=== PATIENT | female | born 1945 | race Caucasian/White ===

== ENCOUNTER 2020-11-22 01:32 | Inpatient (IN) | payer MEDICARE ==
[2020-11-22 01:37] LABS: Glucose,Whole Blood 534 mg/dL (75-99)
[2020-11-22] MEDS ORDERED: SODIUM CHLORIDE 0.9% 1,000 ML IV STA ×2 (01:49)
[2020-11-22] MEDS ORDERED: SODIUM CHLORIDE 0.9% 1,000 ML IV ONE (01:50)
--- NOTE | 2020-11-22 01:54 | ED ---
Recheck HPI - General Chief Complaint: Altered Mental Status Stated Complaint: Altered mental status Time Seen by Provider: 11/22/20 01:46 Source: EMS, RN notes reviewed, old records reviewed Mode of arrival: EMS Limitations: altered mental status, physical limitation - History of Present Illness Initial Comments: This is a 75-year-old female DF for evaluation patient Dese for evaluation regards to treatment of DKA. Patient accepted as a transfer patient with she presented after unknown downtime unknown amount days for she was last seen. Patient significantly altered on arrival to prior emergency department. Patient again transferred us for treatment and management DKA, patient is no code patient MD Complaint: abnormal lab (DKA) -: unknown Returns Today for: Called Because of Abnormal Lab/Test Symptoms Since Prior Visit: no new symptoms Context: other Associated Symptoms: none Treatments Prior to Arrival: Given Antibiotics on - Related Data Allergies Allergy/AdvReac Type Severity Reaction Status Date / Time Iodinated Contrast Media AdvReac Unknown Verified 11/22/20 01:41 Review of Systems ROS Statement: Those systems with pertinent positive or pertinent negative responses have been documented in the HPI. ROS Other: All systems not noted in ROS Statement are negative. Past Medical History Past Medical History: Diabetes Mellitus, Hypertension History of Any Multi-Drug Resistant Organisms: Unobtainable Past Surgical History: Unable to Obtain Past Psychological History: Unable to Obtain Smoking Status: Unknown if ever smoked Past Alcohol Use History: Unable to Obtain Past Drug Use History: Unable to Obtain General Exam Limitations: altered mental status General appearance: alert, anxious, in distress Head exam: Present: atraumatic, normocephalic, normal inspection Eye exam: Present: normal appearance, PERRL, EOMI. Absent: scleral icterus, conjunctival injection, periorbital swelling ENT exam: Present: normal exam, mucous membranes dry Neck exam: Present: normal inspection. Absent: tenderness, meningismus, lymphadenopathy Respiratory exam: Present: normal lung sounds bilaterally. Absent: respiratory distress, wheezes, rales, rhonchi, stridor Cardiovascular Exam: Present: regular rate, normal rhythm, normal heart sounds. Absent: systolic murmur, diastolic murmur, rubs, gallop, clicks GI/Abdominal exam: Present: soft, normal bowel sounds. Absent: distended, tenderness, guarding, rebound, rigid Extremities exam: Present: normal inspection, full ROM, normal capillary refill. Absent: tenderness, pedal edema, joint swelling, calf tenderness Back exam: Present: normal inspection Neurological exam: Present: alert, oriented X3, CN II-XII intact Psychiatric exam: Present: normal affect, normal mood Skin exam: Present: warm, dry, intact, normal color. Absent: rash Course Vital Signs 11/22/20 01:36 Temperature 97.8 F Pulse Rate 86 Respiratory 24 Rate Blood Pressure 139/61 - Reevaluation(s) Reevaluation #1: 11/22/20 01:52 Medical records reviewed Reevaluation #2: 11/22/20 01:52 Transfer paperwork is also been reviewed Reevaluation #3: 11/22/20 01:52 Patient remains altered Medical Decision Making - Medical Decision Making 75 female of her mental status, accepted in transfer for continued treatment of DKA. Patient be admitted for monitoring of electrolytes. Patient is a no code patient - Lab Data Lab Results 11/22/20 Range/Units 01:36 POC Glucose (mg/dL) 534 H (75-99) mg/dL POC Glu Hog Cutter Steph Randhawa - EKG Data -: EKG Interpreted by Me (EKG is rate of 92, QRS 86 QTc 467) Critical Care Time Critical Care Time: Yes Total Critical Care Time: 31 Disposition Clinical Impression: Altered mental status, DKA (diabetic ketoacidoses), DNR no code (do not resuscitate) Disposition: ADMITTED IP TO THIS [facility] Condition: Serious Is patient prescribed a controlled substance at d/c from ED?: No Referrals: Nonstaff,Physician [Primary Care Provider] - 1-2 days
[2020-11-22 02:42] LABS: Glucose,Whole Blood 496 mg/dL (75-99)
[2020-11-22] MEDS: SODIUM CHLORIDE 0.9% 1,000 ML IV SCH ×3 (02:43→11:04)
[2020-11-22] MEDS: INSULIN REGULAR 100 UNIT in SODIUM CHLORIDE 0.9% 100 ML IV SCH ×3 (02:44→20:08)
[2020-11-22 02:57] LABS: HCT 43.5 % (34.0-46.0); HGB 13.5 gm/dL (11.4-16.0); MCH 30.1 pg (25.0-35.0); MCHC 30.9 g/dL (31.0-37.0); MCV 97.3 fL (80.0-100.0); Mean Platelet Volume 7.9; Platelet Count 330 k/uL (150-450); RBC 4.47 m/uL (3.80-5.40); RDW 13.3 % (11.5-15.5); WBC 28.6 k/uL (3.8-10.6)
[2020-11-22 03:11] LABS: Albumin 3.4 g/dL (3.5-5.0); Calcium 9.7 mg/dL (8.4-10.2); Magnesium 2.5 mg/dL (1.6-2.3); Phosphorus 5.2 mg/dL (2.5-4.5); Potassium 3.2 mmol/L (3.5-5.1); Total Protein 5.7 g/dL (6.3-8.2)
[2020-11-22 03:37] LABS: Band Neutrophils % 3 %; Lymphocytes # (M) 2.29 k/uL (1.0-4.8); Monocytes # (M) 1.72 k/uL (0-1.0); Neutrophils % (M) 83 %; Nucleated Red Blood Cells 0 /100 WBC (0-0); Total Cells Counted 100
[2020-11-22 04:12] LABS: Glucose,Whole Blood 450 mg/dL (75-99)
[2020-11-22 05:04] LABS: Glucose,Whole Blood 471 mg/dL (75-99)
[2020-11-22 06:10] LABS: Glucose,Whole Blood 446 mg/dL (75-99)
[2020-11-22 07:03] LABS: Glucose,Whole Blood 452 mg/dL (75-99)
[2020-11-22 08:00] LABS: VBG PH 7.31 (7.31-7.41)
[2020-11-22 08:41] LABS: Phosphorus 5.6 mg/dL (2.5-4.5); Potassium 3.8 mmol/L (3.5-5.1)
[2020-11-22 08:52] LABS: Glucose,Whole Blood 517 mg/dL (75-99)
[2020-11-22 08:52] LABS: Glucose,Whole Blood 460 mg/dL (75-99)
[2020-11-22 10:03] LABS: Glucose,Whole Blood 486 mg/dL (75-99)
[2020-11-22 11:08] LABS: Glucose,Whole Blood 468 mg/dL (75-99)
[2020-11-22 11:11] LABS: Phosphorus 5.9 mg/dL (2.5-4.5); Potassium 3.8 mmol/L (3.5-5.1)
[2020-11-22] MEDS: SODIUM CHLORIDE 0.45% 1,000 ML IV SCH ×3 (11:42→22:40)
--- NOTE | 2020-11-22 11:43 | P.HPIM ---
History of Present Illness 75-year-old the female came in after she was found unresponsive and found to be in DKA. I do not have much of the data available at this time patient is severely hyperglycemic is in DKA patient is wheezing on exam patient apparently has history of COPD. Patient is also in renal failure. Have her baseline creatinine but present creatinine is 2.96 on admission it was down 3.0. Patient is a not very responsive barely arousable with painful stimuli. Review of Systems Unable to obtain due to her clinical condition Past Medical History Past Medical History: Diabetes Mellitus, Hyperlipidemia, Hypertension, Memory Impairment, Osteoarthritis (OA), Renal Disease Additional Past Medical History / Comment(s): IDDM type II, neuropathy bilateral hands/lower legs and feet, diabetic nephropathy, past benign tumor removed from L kidney, significant memory problems per grand daughter, arthritis bilateral hands/knees, Vitamin D deficiency, UTIs History of Any Multi-Drug Resistant Organisms: None Reported Past Surgical History: Cholecystectomy Additional Past Surgical History / Comment(s): Partial L nephrectomy, colonoscopy. Past Anesthesia/Blood Transfusion Reactions: No Reported Reaction Smoking Status: Former smoker - Past Family History Father Family Medical History: Dementia Additional Family Medical History / Comment(s): Heart disease. Mother Additional Family Medical History / Comment(s): Heart disease. Lived to be 92 yrs old. Medications and Allergies Home Medications Medication Instructions Recorded Confirmed Type Ergocalciferol [Vitamin D2 (1250 1,250 mcg PO Q7D 11/22/20 11/22/20 History Mcg = 46829 Iu)] Ezetimibe [Zetia] 10 mg PO DAILY 11/22/20 11/22/20 History Insulin Glargine [Lantus] 46 units SQ HS 11/22/20 11/22/20 History Lovastatin [Mevacor] 40 mg PO HS 11/22/20 11/22/20 History Metoprolol Tartrate 25 mg PO BID 11/22/20 11/22/20 History Triamterene-Hctz 37.5-25Mg 1 tab PO DAILY 11/22/20 11/22/20 History [Maxzide 37.5-25] allopurinoL [Zyloprim] 100 mg PO BID 11/22/20 11/22/20 History amLODIPine [Norvasc] 5 mg PO BID 11/22/20 11/22/20 History glipiZIDE [Glucotrol] 5 mg PO AC-BRKFST 11/22/20 11/22/20 History Allergies Allergy/AdvReac Type Severity Reaction Status Date / Time Iodinated Contrast Media AdvReac Unknown Verified 11/22/20 06:29 Physical Exam Vitals: Vital Signs Temp Pulse Resp BP Pulse Ox 11/22/20 08:11 97.3 F L 85 23 138/78 98 11/22/20 06:00 97.3 F L 85 23 138/78 98 11/22/20 05:00 75 24 145/55 75 L 11/22/20 04:00 75 23 167/70 97 11/22/20 01:36 97.8 F 86 24 139/61 Intake and Output 11/21/20 11/22/20 11/22/20 22:59 06:59 14:59 Intake Total 11.552 55.996 Balance 11.552 55.996 Intake: Intake, IV Titration 11.552 55.996 Amount Insulin Regular 100 unit 11.552 55.996 In Sodium Chloride 0.9% 100 ml @ 0.1 UNITS/KG/HR 7.788 mls/hr IV .[id number] [facility] Rx#:[id number] Oral 0 Other: Voiding Method Diaper Incontinent Weight 77.111 kg 77.111 kg PHYSICAL EXAMINATION: GENERAL: He is unresponsive, patient is obtunded not in any acute distress. Well developed, well nourished. HEENT: Pupils are round and equally reacting to light. EOMI. No scleral icterus. No conjunctival pallor. Normocephalic, atraumatic. No pharyngeal erythema. No thyromegaly. CARDIOVASCULAR: S1 and S2 present. No murmurs, rubs, or gallops. PULMONARY: Negative. Bilateral expiratory wheezing ABDOMEN: Soft, nontender, nondistended, normoactive bowel sounds. No palpable organomegaly. MUSCULOSKELETAL: No joint swelling or deformity. EXTREMITIES: No cyanosis, clubbing, or pedal edema. NEUROLOGICAL: Gross neurological examination did not reveal any focal deficits. SKIN: No rashes. Results CBC & Chem 7: 11/22/20 02:33 11/22/20 10:12 Labs: Abnormal Lab Results - Last 24 Hours (Table) 11/22/20 11/22/20 11/22/20 Range/Units 01:36 02:33 02:33 WBC 28.6 H (3.8-10.6) k/uL MCHC 30.9 L (31.0-37.0) g/dL Neutrophils # (Manual) 24.50 H (1.3-7.7) k/uL Monocytes # (Manual) 1.72 H (0-1.0) k/uL VBG pCO2 (37-51) mmHg VBG HCO3 (24-28) mmol/L Sodium (137-145) mmol/L Potassium 3.2 L (3.5-5.1) mmol/L Chloride (98-107) mmol/L Carbon Dioxide 19 L (22-30) mmol/L BUN 109 H* (7-17) mg/dL Creatinine 3.08 H (0.52-1.04) mg/dL Glucose 551 H* (74-99) mg/dL POC Glucose (mg/dL) 534 H (75-99) mg/dL Phosphorus 5.2 H (2.5-4.5) mg/dL Magnesium 2.5 H (1.6-2.3) mg/dL AST 59 H (14-36) U/L ALT 39 H (4-34) U/L Creatine Kinase 1348 H* (30-135) U/L Troponin I (0.000-0.034) ng/mL Total Protein 5.7 L (6.3-8.2) g/dL Albumin 3.4 L (3.5-5.0) g/dL 11/22/20 11/22/20 11/22/20 Range/Units 02:33 02:41 04:11 WBC (3.8-10.6) k/uL MCHC (31.0-37.0) g/dL Neutrophils # (Manual) (1.3-7.7) k/uL Monocytes # (Manual) (0-1.0) k/uL VBG pCO2 (37-51) mmHg VBG HCO3 (24-28) mmol/L Sodium (137-145) mmol/L Potassium (3.5-5.1) mmol/L Chloride (98-107) mmol/L Carbon Dioxide (22-30) mmol/L BUN (7-17) mg/dL Creatinine (0.52-1.04) mg/dL Glucose (74-99) mg/dL POC Glucose (mg/dL) 496 H 450 H (75-99) mg/dL Phosphorus (2.5-4.5) mg/dL Magnesium (1.6-2.3) mg/dL AST (14-36) U/L ALT (4-34) U/L Creatine Kinase (30-135) U/L Troponin I 0.281 H* (0.000-0.034) ng/mL Total Protein (6.3-8.2) g/dL Albumin (3.5-5.0) g/dL 11/22/20 11/22/20 11/22/20 Range/Units 04:56 05:53 07:01 WBC (3.8-10.6) k/uL MCHC (31.0-37.0) g/dL Neutrophils # (Manual) (1.3-7.7) k/uL Monocytes # (Manual) (0-1.0) k/uL VBG pCO2 (37-51) mmHg VBG HCO3 (24-28) mmol/L Sodium (137-145) mmol/L Potassium (3.5-5.1) mmol/L Chloride (98-107) mmol/L Carbon Dioxide (22-30) mmol/L BUN (7-17) mg/dL Creatinine (0.52-1.04) mg/dL Glucose (74-99) mg/dL POC Glucose (mg/dL) 471 H 446 H 452 H (75-99) mg/dL Phosphorus (2.5-4.5) mg/dL Magnesium (1.6-2.3) mg/dL AST (14-36) U/L ALT (4-34) U/L Creatine Kinase (30-135) U/L Troponin I (0.000-0.034) ng/mL Total Protein (6.3-8.2) g/dL Albumin (3.5-5.0) g/dL 11/22/20 11/22/20 11/22/20 Range/Units 07:19 07:19 08:47 WBC (3.8-10.6) k/uL MCHC (31.0-37.0) g/dL Neutrophils # (Manual) (1.3-7.7) k/uL Monocytes # (Manual) (0-1.0) k/uL VBG pCO2 33 L (37-51) mmHg VBG HCO3 16 L (24-28) mmol/L Sodium (137-145) mmol/L Potassium (3.5-5.1) mmol/L Chloride 111 H (98-107) mmol/L Carbon Dioxide 14 L (22-30) mmol/L BUN 108 H* (7-17) mg/dL Creatinine 2.88 H (0.52-1.04) mg/dL Glucose 519 H* (74-99) mg/dL POC Glucose (mg/dL) 517 H (75-99) mg/dL Phosphorus 5.6 H (2.5-4.5) mg/dL Magnesium (1.6-2.3) mg/dL AST (14-36) U/L ALT (4-34) U/L Creatine Kinase (30-135) U/L Troponin I (0.000-0.034) ng/mL Total Protein (6.3-8.2) g/dL Albumin (3.5-5.0) g/dL 11/22/20 11/22/20 11/22/20 Range/Units 08:49 10:00 10:12 WBC (3.8-10.6) k/uL MCHC (31.0-37.0) g/dL Neutrophils # (Manual) (1.3-7.7) k/uL Monocytes # (Manual) (0-1.0) k/uL VBG pCO2 (37-51) mmHg VBG HCO3 (24-28) mmol/L Sodium 146 H (137-145) mmol/L Potassium (3.5-5.1) mmol/L Chloride 111 H (98-107) mmol/L Carbon Dioxide 18 L (22-30) mmol/L BUN 109 H* (7-17) mg/dL Creatinine 2.96 H (0.52-1.04) mg/dL Glucose 531 H* (74-99) mg/dL POC Glucose (mg/dL) 460 H 486 H (75-99) mg/dL Phosphorus 5.9 H (2.5-4.5) mg/dL Magnesium (1.6-2.3) mg/dL AST (14-36) U/L ALT (4-34) U/L Creatine Kinase (30-135) U/L Troponin I (0.000-0.034) ng/mL Total Protein (6.3-8.2) g/dL Albumin (3.5-5.0) g/dL 11/22/20 Range/Units 11:00 WBC (3.8-10.6) k/uL MCHC (31.0-37.0) g/dL Neutrophils # (Manual) (1.3-7.7) k/uL Monocytes # (Manual) (0-1.0) k/uL VBG pCO2 (37-51) mmHg VBG HCO3 (24-28) mmol/L Sodium (137-145) mmol/L Potassium (3.5-5.1) mmol/L Chloride (98-107) mmol/L Carbon Dioxide (22-30) mmol/L BUN (7-17) mg/dL Creatinine (0.52-1.04) mg/dL Glucose (74-99) mg/dL POC Glucose (mg/dL) 468 H (75-99) mg/dL Phosphorus (2.5-4.5) mg/dL Magnesium (1.6-2.3) mg/dL AST (14-36) U/L ALT (4-34) U/L Creatine Kinase (30-135) U/L Troponin I (0.000-0.034) ng/mL Total Protein (6.3-8.2) g/dL Albumin (3.5-5.0) g/dL Thrombosis Risk Factor Assmnt - Choose All That Apply Any of the Below Risk Factors Present?: Yes Each Factor Represents 1 point: Medical pt on bed rest Each Risk Factor Represents 2 Points: Age 61-74 years, Patient confined to bed Other congenital or acquired thrombophilia - If yes, enter type in comment: No Thrombosis Risk Factor Assessment Total Risk Factor Score: 5 Thrombosis Risk Factor Assessment Level: High Risk Assessment and Plan Plan: - unresponsiveness, altered mental status and obtundation: She appears to have severe metabolic encephalopathy secondary to diverticulosis doses highly elevated blood sugars, metabolic acidosis, DKA and acute renal failure. Diabetic keto acidosis: Patient is presently on IV insulin IV fluids will be transitioned to half-normal selling because of hyperkalemia and hyponatremia. -Severe dehydration -Acute renal failure prerenal azotemia unsure whether patient has chronic kidney disease as baseline creatinine is not available patient is on IV fluids as mentioned above, holding off on a vertex -Metabolic acidosis: Patient has both anion gap and non-anion gap metabolic acidosis 7 hypertension: Holding off all the medications at this time as patient is high risk for aspiration, once patient is more awake patient can be started on 2 medications if needed patient will be given IV hydralazine for blood pressure. -Type 2 diabetes mellitus uncontrolled elevated blood sugars patient is insulin- dependent diabetic -Hyperlipidemia -DVT prophylaxis with subcutaneous heparin
[2020-11-22] MEDS: IPRATROPIUM-ALBUTEROL 3 ML NEB INHALATION SCH ×3 (12:23→20:07)
[2020-11-22 12:27] LABS: Glucose,Whole Blood 459 mg/dL (75-99)
[2020-11-22 13:01] LABS: Glucose,Whole Blood 473 mg/dL (75-99)
[2020-11-22 14:09] LABS: Glucose,Whole Blood 495 mg/dL (75-99)
[2020-11-22] MEDS: EZETIMIBE 10 MG TAB PO SCH (14:51)
[2020-11-22] MEDS: amLODIPine 5 MG TAB PO SCH ×2 (14:51→20:03)
[2020-11-22] MEDS: allopurinoL 100 MG TAB PO SCH ×2 (14:51→20:03)
[2020-11-22] MEDS: METOPROLOL TARTRATE 25 MG TAB PO SCH ×2 (14:51→20:04)
[2020-11-22 15:12] LABS: Glucose,Whole Blood 446 mg/dL (75-99)
--- NOTE | 2020-11-22 15:46 | XR ---
EXAMINATION TYPE: XR chest 2V DATE OF EXAM: 11/22/2020 COMPARISON: Chest x-ray and CT from outside institution 11/21/2020 HISTORY: Pneumonia TECHNIQUE: Frontal and lateral views of the chest are obtained. FINDINGS: There is blunting of left costophrenic angle as on prior, no pneumothorax. The cardiac si lhouette size is stable and enlarged, patient is rotated which makes accentuate appearance. The oss eous structures are intact. Calcified density seen on prior exam within the soft tissues is likely patton perimposed over the right lung apex on the current exam. There is arthropathy in the acromioclavicula r joints. Extensive coronary artery calcifications are present IMPRESSION: No acute cardiopulmonary process. Blunted left costophrenic angle is likely due to epica rdial fat pad as noted on CT. Cardiomegaly. Coronary artery disease.
[2020-11-22] MEDS: HEPARIN SODIUM,PORCINE/PF 5,000 UNIT/0.5 ML SYRINGE SQ SCH (15:56)
[2020-11-22 16:13] LABS: Glucose,Whole Blood 446 mg/dL (75-99)
[2020-11-22 17:17] LABS: Glucose,Whole Blood 399 mg/dL (75-99)
[2020-11-22 18:19] LABS: Glucose,Whole Blood 354 mg/dL (75-99)
[2020-11-22 19:02] LABS: Glucose,Whole Blood 307 mg/dL (75-99)
[2020-11-22 20:04] LABS: Glucose,Whole Blood 207 mg/dL (75-99)
[2020-11-22] MEDS: FAMOTIDINE 20 MG/2 ML VIAL IV SCH (20:04)
[2020-11-22 20:58] LABS: Glucose,Whole Blood 150 mg/dL (75-99)
[2020-11-22] MEDS ORDERED: FAMOTIDINE 20 MG/2 ML VIAL IV SCH (21:00)
[2020-11-22] MEDS ORDERED: ATORVASTATIN 10 MG TAB PO SCH (21:00)
[2020-11-22 21:54] LABS: Glucose,Whole Blood 126 mg/dL (75-99)
[2020-11-22 23:04] LABS: Glucose,Whole Blood 52 mg/dL (75-99)
[2020-11-22] MEDS ORDERED: DEXTROSE 50% SYRINGE 50 ML IVP ONE (23:04)
[2020-11-22 23:18] LABS: Glucose,Whole Blood 147 mg/dL (75-99)
[2020-11-23] LABS: Glucose,Whole Blood 93 mg/dL (75-99)
[2020-11-23] MEDS: HEPARIN SODIUM,PORCINE/PF 5,000 UNIT/0.5 ML SYRINGE SQ SCH ×2 (00:53→09:39)
[2020-11-23 00:58] LABS: Glucose,Whole Blood 110 mg/dL (75-99)
[2020-11-23 02:05] LABS: Glucose,Whole Blood 127 mg/dL (75-99)
[2020-11-23 03:01] LABS: Glucose,Whole Blood 134 mg/dL (75-99)
[2020-11-23 03:59] LABS: Glucose,Whole Blood 123 mg/dL (75-99)
[2020-11-23 05:00] LABS: Glucose,Whole Blood 121 mg/dL (75-99)
[2020-11-23 05:55] LABS: Glucose,Whole Blood 118 mg/dL (75-99)
[2020-11-23] MEDS: D5-0.45% NACL WITH KCL 20MEQ/L 1,000 ML IV SCH ×4 (06:38→20:51)
[2020-11-23 07:13] LABS: Glucose,Whole Blood 146 mg/dL (75-99)
[2020-11-23 08:04] LABS: Glucose,Whole Blood 159 mg/dL (75-99)
[2020-11-23] MEDS: SODIUM CHLORIDE 0.45% 1,000 ML IV SCH ×2 (08:21→09:36)
[2020-11-23] MEDS: IPRATROPIUM-ALBUTEROL 3 ML NEB INHALATION SCH ×4 (08:55→18:48)
[2020-11-23 09:04] LABS: Glucose,Whole Blood 206 mg/dL (75-99)
[2020-11-23 09:05] LABS: HGB 12.6 gm/dL (11.4-16.0); MCHC 34.2 g/dL (31.0-37.0); MCV 93.7 fL (80.0-100.0); Mean Platelet Volume 7.4; Platelet Count 226 k/uL (150-450); RBC 3.95 m/uL (3.80-5.40); RDW 12.8 % (11.5-15.5); WBC 19.6 k/uL (3.8-10.6)
[2020-11-23 09:15] LABS: Calcium 8.7 mg/dL (8.4-10.2); Phosphorus 3.3 mg/dL (2.5-4.5); Potassium 3.2 mmol/L (3.5-5.1)
[2020-11-23] MEDS: METOPROLOL TARTRATE 25 MG TAB PO SCH ×2 (09:41→22:05)
[2020-11-23] MEDS: allopurinoL 100 MG TAB PO SCH ×2 (09:41→22:04)
[2020-11-23] MEDS: EZETIMIBE 10 MG TAB PO SCH (09:41)
[2020-11-23] MEDS: amLODIPine 5 MG TAB PO SCH ×2 (09:41→22:04)
[2020-11-23 09:56] LABS: Glucose,Whole Blood 194 mg/dL (75-99)
[2020-11-23 11:04] LABS: Glucose,Whole Blood 249 mg/dL (75-99)
[2020-11-23] MEDS ORDERED: DILTIAZEM DRIP BOLUS FROM BAG 1 MG SOLN IV ONE (11:09)
[2020-11-23] MEDS ORDERED: HEPARIN SOD,PORK IN 0.45% NACL 25,000 UNIT in 0.45% NACL 1 250ML.BAG IV SCH (11:15)
[2020-11-23] MEDS ORDERED: HEPARIN SODIUM 1,000 UN/ML (10ML VL) IV PRN (11:15)
[2020-11-23] MEDS: DILTIAZEM 125 MG in SODIUM CHLORIDE 0.9% 100 ML IV SCH ×2 (11:48→11:49)
--- NOTE | 2020-11-23 11:59 | P.CRDCN ---
History of Present Illness History of present illness: HISTORY OF PRESENTING ILLNESS Patient is unresponsive, not alert and oriented. Information has been obtained from chart review and family. This is a pleasant 75-year-old female past medical history significant for type 2 diabetes, hypertension, hyperlipidemia, chronic kidney disease, renal cancer s/p surgery per family. She does not follow with [employer]. We have been asked to see in consultation for atrial fibrillation with rapid ventricular response. Patient is seen and examined at bedside, patient is unresponsive to verbal stimuli, barely arousable to painful stimuli. Spoke with granddaughter, Lynn, on the phone, who was the family member that found the patient at home. She states on Friday around 6pm she found her grandmother on the ground in the bathroom. She states her grandmother was not waking up so she called 911. She did notice that the bathroom floor was wet and smelled like urine. She states she regularly checks in on her grandmother. Last known well of her grandmother that she can recall was on Friday when he had a family barbecue. Yesterday when going through her grandmother's house she did notice that her grandmother was not taking her medication she noticed multiple medications not taking including 4 insulin syringe needles on her bedside table, that had insulin in the syringes. She states that she was taken to [facility] and was suppose to be transferred to [place], however, they had no beds, so her grandmother was transferred to [facility]. Per her granddaughter her grandmother's baseline is normally alert and oriented x 3 able to take care of herself at home, however, over the past year her family has noticed a decline in cognition. Her grandmother has been intermittently confused at home. She states that some days she's oriented and some days she is very confused. Laboratory data reviewed on admission sodium 146, potassium 3.8, serum creatinine 2.96, BUN 9, glucose 531, magnesium 2.5, AST 59, PLT 39, troponin elevated 0.28, BNP 14,200, COVID-19 negative DIAGNOSTICS EKG on 11/22/2020 reveals sinus mechanism HR 72 EKG early this AM reveals multiple atrial tachycardia EKG this afternoon does appear to be in atrial fibrillation with rapid ventricular response Telemetry tracings indicate atrial fibrillation with rapid ventricular response HR 150s Chest xray Patient is rotated. No acute cardiopulmonary process. cardiac silhouette stable and enlarged. Extensive coronary artery calcifications present Laboratory reviewed, Current home cardiac medications include metoprolol tartrate 25mg BID, am lodipine 5mg BID. REVIEW OF SYSTEMS At the time of my exam: Patient is unresponsive, unable to communicate concerns or complaints to get an accurate review of systems PHYSICAL EXAMINATION CONSTITUTIONAL: No apparent distress. HEENT: Head is normocephalic. Pupils are equal, pin point. No JVD. No carotid bruit. CHEST EXAMINATION: Lungs are diminished to auscultation. No chest wall tenderness is noted on palpation or with deep breathing. HEART EXAMINATION: Irregular tachycardic rate and rhythm. S1, S2 heard. No murmurs, gallops or rub. ABDOMEN: Soft, nontender. Positive bowel sounds. EXTREMITIES: 2+ peripheral pulses, no lower extremity edema and no calf tenderness. NEUROLOGIC EXAMINATION: Patient appears comatose, unresponsive ASSESSMENT Paroxysmal atrial fibrillation -[id number] score 4 Type 2 diabetes Hypertension Hyperlipidemia Chronic kidney disease- unaware of patient's baseline creatinine Hypokalmemia- Elevated Troponin x 1- EKG with no ischemic changes will trend troponin PLAN -Obtain 2D echo -Cardizem bolus followed by cardizem drip -Heparin drip -Troponin trend- total of 3 troponin -Check TSH and Mag -Continue to monitor renal function and electrolytes -Patient unable to take PO meds at this time- unable to take amlodipine, statin, and metoprolol tartrate -Further recommendations based on clinical course Nurse Practitioner note has been reviewed, I agree with a documented findings and plan of care. Patient was seen and examined. Past Medical History Past Medical History: Diabetes Mellitus, Hyperlipidemia, Hypertension, Memory Impairment, Osteoarthritis (OA), Renal Disease Additional Past Medical History / Comment(s): IDDM type II, neuropathy bilateral hands/lower legs and feet, diabetic nephropathy, past benign tumor removed from L kidney, significant memory problems per grand daughter, arthritis bilateral hands/knees, Vitamin D deficiency, UTIs History of Any Multi-Drug Resistant Organisms: None Reported Past Surgical History: Cholecystectomy Additional Past Surgical History / Comment(s): Partial L nephrectomy, colonoscopy. Past Anesthesia/Blood Transfusion Reactions: No Reported Reaction Smoking Status: Former smoker - Past Family History Father Family Medical History: Dementia Additional Family Medical History / Comment(s): Heart disease. Mother Additional Family Medical History / Comment(s): Heart disease. Lived to be 89 y rs old. Medications and Allergies Home Medications Medication Instructions Recorded Confirmed Type Ergocalciferol [Vitamin D2 (1250 1,250 mcg PO Q7D 11/22/20 11/22/20 History Mcg = 11778 Iu)] Ezetimibe [Zetia] 10 mg PO DAILY 11/22/20 11/22/20 History Insulin Glargine [Lantus] 46 units SQ HS 11/22/20 11/22/20 History Lovastatin [Mevacor] 40 mg PO HS 11/22/20 11/22/20 History Metoprolol Tartrate 25 mg PO BID 11/22/20 11/22/20 History Triamterene-Hctz 37.5-25Mg 1 tab PO DAILY 11/22/20 11/22/20 History [Maxzide 37.5-25] allopurinoL [Zyloprim] 100 mg PO BID 11/22/20 11/22/20 History amLODIPine [Norvasc] 5 mg PO BID 11/22/20 11/22/20 History glipiZIDE [Glucotrol] 5 mg PO AC-BRKFST 11/22/20 11/22/20 History Allergies Allergy/AdvReac Type Severity Reaction Status Date / Time Iodinated Contrast Media AdvReac Unknown Verified 11/22/20 06:29 Physical Exam Vitals: Vital Signs Temp Pulse Pulse Resp BP Pulse Ox 11/23/20 09:46 98.0 F 79 23 185/74 97 11/23/20 04:00 90 20 179/76 96 11/23/20 01:05 91 20 11/23/20 00:00 91 20 139/64 95 11/22/20 20:19 80 11/22/20 20:07 76 11/22/20 20:00 74 20 131/64 97 11/22/20 16:00 97.6 F 84 22 150/77 94 L 11/22/20 14:00 68 11/22/20 12:00 97.9 F 68 20 163/73 96 Intake and Output 11/22/20 11/23/20 11/23/20 22:59 06:59 14:59 Intake Total 131.332 14.162 2.521 Output Total 904 450 Balance -772.668 -435.838 2.521 Intake: Intake, IV Titration 131.332 14.162 2.521 Amount Insulin Regular 100 unit 131.332 14.162 2.521 In Sodium Chloride 0.9% 100 ml @ 0.1 UNITS/KG/HR 7.788 mls/hr IV .[id number] [facility] Rx#:[id number] Oral 0 Output: Urine 904 450 Other: Voiding Method Diaper Diaper Indwelling Catheter Incontinent Incontinent Weight 79.5 kg Results 11/23/20 08:40 11/23/20 08:40 CBC 11/23/20 Range/Units 08:40 WBC 19.6 H (3.8-10.6) k/uL RBC 3.95 (3.80-5.40) m/uL Hgb 12.6 (11.4-16.0) gm/dL Hct 37.0 (34.0-46.0) % Plt Count 226 (150-450) k/uL Comprehensive Metabolic Panel 11/22/20 11/23/20 Range/Units 10:12 08:40 Sodium 146 H 146 H (137-145) mmol/L Potassium 3.8 3.2 L (3.5-5.1) mmol/L Chloride 111 H 119 H (98-107) mmol/L Carbon Dioxide 18 L 19 L (22-30) mmol/L BUN 109 H* 86 H (7-17) mg/dL Creatinine 2.96 H 2.14 H (0.52-1.04) mg/dL Glucose 531 H* 194 H (74-99) mg/dL Calcium 8.7 (8.4-10.2) mg/dL Current Medications Generic Name Dose Route Start Last Admin Trade Name Freq PRN Reason Stop Dose Admin Albuterol/Ipratropium 3 ml 11/22/20 12:00 11/23/20 08:55 Ipratropium-Albuterol 3 Ml Neb INHALATION Not Given RT-QID [facility] Allopurinol 100 mg 11/22/20 09:00 11/23/20 09:41 Allopurinol 100 Mg Tab PO Not Given BID [facility] Amlodipine Besylate 5 mg 11/22/20 09:00 11/23/20 09:41 Amlodipine 5 Mg Tab PO Not Given BID [facility] Atorvastatin Calcium 10 mg 11/22/20 21:00 11/22/20 20:03 Atorvastatin 10 Mg Tab PO Not Given HS KAITE Ezetimibe 10 mg 11/22/20 09:00 11/23/20 09:41 Ezetimibe 10 Mg Tab PO Not Given DAILY KATIE Famotidine 20 mg 11/22/20 21:00 11/22/20 20:04 Famotidine 20 Mg/2 Ml Vial IV Not Given Q24H KATIE Heparin Sodium (Porcine) 5,000 unit 11/22/20 16:00 11/23/20 09:39 Heparin Sodium,Porcine/Pf 5,000 Unit/0.5 Ml Syringe SQ 5,000 unit Q8HR KATIE Administration Insulin Human Regular 100 unit 101 mls @ 7.788 mls/hr 11/22/20 02:00 11/23/20 07:12 / Sodium Chloride IV 0.01 units/kg/hr .[id number] KAT[facility] 0.62 mls/hr Titration Protocol 0.1 UNITS/KG/HR Potassium Chloride/Dextrose/Sod Cl 1,000 mls @ 150 mls/hr 11/23/20 06:00 11/23/20 06:38 D5%-1/2ns-Kcl 20 Meq/L Iv Solution IV 150 mls/hr .[id number] KATIE Administration Metoprolol Tartrate 25 mg 11/22/20 09:00 11/23/20 09:41 Metoprolol Tartrate 25 Mg Tab PO Not Given BID KATIE Intake and Output 11/22/20 11/23/20 11/23/20 22:59 06:59 14:59 Intake Total 131.332 14.162 2.521 Output Total 904 450 Balance -772.668 -435.838 2.521 Intake: Intake, IV Titration 131.332 14.162 2.521 Amount Insulin Regular 100 unit 131.332 14.162 2.521 In Sodium Chloride 0.9% 100 ml @ 0.1 UNITS/KG/HR 7.788 mls/hr IV .[id number] [facility] Rx#:[id number] Oral 0 Output: Urine 904 450 Other: Voiding Method Diaper Diaper Indwelling Catheter Incontinent Incontinent Weight 79.5 kg 11/23/20 08:40 11/23/20 08:40
--- NOTE | 2020-11-23 12:00 | ECHOF ---
Referral Reason:new atrial fibrillation MEASUREMENTS -------- HEIGHT: 170.2 cm WEIGHT: 79.4 kg BP: 185/74 RVIDd: 3.1 cm (< 3.3) IVSd: 1.7 cm (0.6 - 1.1) LVIDd: 3.2 cm (3.9 - 5.3) LVPWd: 1.8 cm (0.6 - 1.1) IVSs: 2.1 cm LVIDs: 2.2 cm LVPWs: 2.1 cm Ao Diam: 2.1 cm (2.0 - 3.7) AV Cusp: 1.5 cm (1.5 - 2.6) RAP: 5.00 mmHg RVSP: 34.49 mmHg FINDINGS -------- Atrial fibrillation. A-FIB with RVR This was a technically difficult study with suboptimal views. The left ventricular size is normal. There is moderate concentric left ventricular hypertrophy. U nable to comment on EF due to Tachycardia. The right ventricle is normal in size. The left atrium was not well visualized. The right atrium was not well visualized. Lumason used Interatrial and interventricular septum intact. The aortic valve was not well visualized. There is no evidence of aortic regurgitation. There is no evidence of aortic stenosis. The mitral valve was not well visualized. Mild tricuspid regurgitation present. There is borderline pulmonary hypertension. The right ventr icular systolic pressure, as measured by Doppler, is 34.49mmHg. The pulmonic valve was not well visualized. The aortic root size is normal. IVC Not well visulized. There is a trivial pericardial effusion present. CONCLUSIONS -------- 1. A-FIB with RVR 2. The left ventricular size is normal. 3. There is moderate concentric left ventricular hypertrophy. 4. Unable to comment on EF due to Tachycardia. 5. Mild tricuspid regurgitation present. 6. There is borderline pulmonary hypertension. 7. The right ventricular systolic pressure, as measured by Doppler, is 34.49mmHg. VEHICLE UPHOLSTERER: Cris Hernández, [facility]
[2020-11-23 12:02] LABS: Glucose,Whole Blood 274 mg/dL (75-99)
[2020-11-23 12:21] LABS: INR 0.9 (<1.2); Partial Thromboplastin Time 23.1 sec (22.0-30.0); Prothrombin Time 9.9 sec (9.0-12.0)
[2020-11-23 12:39] LABS: Magnesium 2.3 mg/dL (1.6-2.3)
--- NOTE | 2020-11-23 13:08 | P.CNNES ---
History of Present Illness Consult date: 11/23/20 Requesting physician: Leonides Hanley Reason for Consult: altered mental status concern for seizure History of Present Illness: This is a 75-year-old woman with medical history of diabetes type 2, hypertension, hyperlipidemia, chronic kidney insufficiency, renal cancer status post surgery, peripheral neuropathy who was transferred from outside facility on 11/22/2020 after she was found unresponsive. She was found to be in DKA. 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 Per the patient's nurse she stated that the according to the granddaughter the patient was last known normal on Friday in which the patient the was shopping with her granddaughter. Then the patient was found down on her bathroom floor on she stay. At the outside facility was felt that she had DKA and was transferred for further care in our facility. Today the patient nurse felt that she had tremor side to side of both upper extremities and resolved. There is no generalized tonic-clonic jerking or jerking of any extremities. The patient nurse the patient had CT of the head at outside facility and they requested results of the CT. Also Note the per medical record and the patient has history of dementia. Workup in the hospital consisted of: Initial vital signs is blood pressure of 139/61, heart rate of 86, respiratory of 24, temperature of 97.8 Fahrenheit axillary, pulse ox of 97% sent at room air. EKG is reported as undetermined rhythm. Left axis deviation. Abnormal EKG. 2-D echo reports the patient is in atrial fibrillation. A. fib with RVR. There is moderate concentric left ventricular hypertrophy. And unable to comment on the ejection fraction due to the tachycardia. Left atrium is not well visualized. Initial white blood cell is 28.6 on repeated 19.6. Initial POC glucose was 534 and a serum glucose was 551. CK level initially was 1348. Troponin was 0.281 which is elevated. The BUN is 109 and a creatinine is 3.08. The AST is 59 in the ALTs 39 which are mildly elevated. Ammonia level is less than 9. Her most sodium is 146 which is mildly elevated. Blood sugar has been ranging in the 200 to 270's She had a 2-D echo line as the shown that the patient is in atrial fibrillation. Cardiology were consulted and was started on heparin drip. Review of Systems Review of system is limited but the parent positive and negative as per HPI. Past Medical History Past Medical History: Diabetes Mellitus, Hyperlipidemia, Hypertension, Memory Impairment, Osteoarthritis (OA), Renal Disease Additional Past Medical History / Comment(s): IDDM type II, neuropathy bilateral hands/lower legs and feet, diabetic nephropathy, past benign tumor removed from L kidney, significant memory problems per grand daughter, arthritis bilateral hands/knees, Vitamin D deficiency, UTIs History of Any Multi-Drug Resistant Organisms: None Reported Past Surgical History: Cholecystectomy Additional Past Surgical History / Comment(s): Partial L nephrectomy, colo noscopy. Past Anesthesia/Blood Transfusion Reactions: No Reported Reaction Smoking Status: Former smoker - Past Family History Father Family Medical History: Dementia Additional Family Medical History / Comment(s): Heart disease. Mother Additional Family Medical History / Comment(s): Heart disease. Lived to be 92 yrs old. Medications and Allergies Home Medications Medication Instructions Recorded Confirmed Type Ergocalciferol [Vitamin D2 (1250 1,250 mcg PO Q7D 11/22/20 11/22/20 History Mcg = 30370 Iu)] Ezetimibe [Zetia] 10 mg PO DAILY 11/22/20 11/22/20 History Insulin Glargine [Lantus] 46 units SQ HS 11/22/20 11/22/20 History Lovastatin [Mevacor] 40 mg PO HS 11/22/20 11/22/20 History Metoprolol Tartrate 25 mg PO BID 11/22/20 11/22/20 History Triamterene-Hctz 37.5-25Mg 1 tab PO DAILY 11/22/20 11/22/20 History [Maxzide 37.5-25] allopurinoL [Zyloprim] 100 mg PO BID 11/22/20 11/22/20 History amLODIPine [Norvasc] 5 mg PO BID 11/22/20 11/22/20 History glipiZIDE [Glucotrol] 5 mg PO AC-BRKFST 11/22/20 11/22/20 History Allergies Allergy/AdvReac Type Severity Reaction Status Date / Time Iodinated Contrast Media AdvReac Unknown Verified 11/22/20 06:29 Physical Examination - Vital Signs Vital Signs: Vital Signs Temp Pulse Pulse Resp BP Pulse Ox 11/23/20 12:00 98.6 F 157 H 25 H 130/62 95 11/23/20 11:54 156 H 32 H 158/82 94 L 11/23/20 11:52 156 H 25 H 136/61 95 11/23/20 09:46 98.0 F 79 23 185/74 97 11/23/20 04:00 90 20 179/76 96 11/23/20 01:05 91 20 11/23/20 00:00 91 20 139/64 95 11/22/20 20:19 80 11/22/20 20:07 76 11/22/20 20:00 74 20 131/64 97 11/22/20 16:00 97.6 F 84 22 150/77 94 L 11/22/20 14:00 68 Intake and Output 11/22/20 11/23/20 11/23/20 22:59 06:59 14:59 Intake Total 131.332 14.162 5.788 Output Total 904 450 600 Balance -772.668 -435.838 -594.212 Intake: Intake, IV Titration 131.332 14.162 5.788 Amount Diltiazem 125 mg In 0.167 Sodium Chloride 0.9% 100 ml @ 10 MG/HR 10 mls/hr IV .[id number] KATIE Rx#: [id number] Insulin Regular 100 unit 131.332 14.162 5.621 In Sodium Chloride 0.9% 100 ml @ 0.1 UNITS/KG/HR 7.788 mls/hr IV .[id number] KATIE Rx#:[id number] Oral 0 Output: Urine 904 450 600 Other: Voiding Method Diaper Diaper Indwelling Catheter Incontinent Incontinent Weight 79.5 kg GENERAL: The patient is lying in bed and seems in mild acute distress. CHEST: The heart rate is irregular irregular. No murmurs to auscultation. LUNG: Clear to auscultation bilaterally no wheezing noted throughout. Seems tachypneic. ABDOMEN/GI: Bowel sounds present in all 4 quadrants. No tenderness to palpation throughout. NEUROLOGICAL: Limited because of patient's condition. Higher mental function: GCS (7) E1, V1, M5. The patient is comatose. She is no verbalized or attempting to communicate. Cranial nerves: I had to manually open her eyes. The primary gaze seems right gaze deviation bilaterally. The pupils are round, equal, 2mm bilaterally and reactive to light. No facial weakness noted. Motor: Gait is unable to assess. The strength is Withdrawl to painful stimuli of right upper and lower extremity to painful stimuli but does not withdawl on the left upper and minimally withdrawl on the left lower extremity. No sponateous movement noted. Normal tone. Cerebellum: Could not assess. Sensation: Could not assess light touch and to painful stimuli as stated above. Reflexes (right/left): 1+ throughout. Plantars are mute bilaterally. Results Calcium is 8.7 which is normal. Phosphorus is reported 3 which is also considered normal. Magnesium is 2.5 which is slightly elevated but nothing concerning. Rjaput virus PCR was not detected. - Laboratory Findings CBC and BMP: 11/23/20 08:40 11/23/20 08:40 Abnormal Lab Findings: Abnormal Labs 11/22/20 11/22/20 11/22/20 01:36 02:33 02:33 WBC 28.6 H MCHC 30.9 L Neutrophils # (Manual) 24.50 H Monocytes # (Manual) 1.72 H VBG pCO2 VBG HCO3 Sodium Potassium 3.2 L Chloride Carbon Dioxide 19 L BUN 109 H* Creatinine 3.08 H Glucose 551 H* POC Glucose (mg/dL) 534 H Phosphorus 5.2 H Magnesium 2.5 H AST 59 H ALT 39 H Creatine Kinase 1348 H* Troponin I Total Protein 5.7 L Albumin 3.4 L 11/22/20 11/22/20 11/22/20 02:33 02:41 04:11 WBC MCHC Neutrophils # (Manual) Monocytes # (Manual) VBG pCO2 VBG HCO3 Sodium Potassium Chloride Carbon Dioxide BUN Creatinine Glucose POC Glucose (mg/dL) 496 H 450 H Phosphorus Magnesium AST ALT Creatine Kinase Troponin I 0.281 H* Total Protein Albumin 11/22/20 11/22/20 11/22/20 04:56 05:53 07:01 WBC MCHC Neutrophils # (Manual) Monocytes # (Manual) VBG pCO2 VBG HCO3 Sodium Potassium Chloride Carbon Dioxide BUN Creatinine Glucose POC Glucose (mg/dL) 471 H 446 H 452 H Phosphorus Magnesium AST ALT Creatine Kinase Troponin I Total Protein Albumin 11/22/20 11/22/20 11/22/20 07:19 07:19 08:47 WBC MCHC Neutrophils # (Manual) Monocytes # (Manual) VBG pCO2 33 L VBG HCO3 16 L Sodium Potassium Chloride 111 H Carbon Dioxide 14 L BUN 108 H* Creatinine 2.88 H Glucose 519 H* POC Glucose (mg/dL) 517 H Phosphorus 5.6 H Magnesium AST ALT Creatine Kinase Troponin I Total Protein Albumin 11/22/20 11/22/20 11/22/20 08:49 10:00 10:12 WBC MCHC Neutrophils # (Manual) Monocytes # (Manual) VBG pCO2 VBG HCO3 Sodium 146 H Potassium Chloride 111 H Carbon Dioxide 18 L BUN 109 H* Creatinine 2.96 H Glucose 531 H* POC Glucose (mg/dL) 460 H 486 H Phosphorus 5.9 H Magnesium AST ALT Creatine Kinase Troponin I Total Protein Albumin 11/22/20 11/22/20 11/22/20 11:00 12:00 12:59 WBC MCHC Neutrophils # (Manual) Monocytes # (Manual) VBG pCO2 VBG HCO3 Sodium Potassium Chloride Carbon Dioxide BUN Creatinine Glucose POC Glucose (mg/dL) 468 H 459 H 473 H Phosphorus Magnesium AST ALT Creatine Kinase Troponin I Total Protein Albumin 11/22/20 11/22/20 11/22/20 14:06 15:08 16:10 WBC MCHC Neutrophils # (Manual) Monocytes # (Manual) VBG pCO2 VBG HCO3 Sodium Potassium Chloride Carbon Dioxide BUN Creatinine Glucose POC Glucose (mg/dL) 495 H 446 H 446 H Phosphorus Magnesium AST ALT Creatine Kinase Troponin I Total Protein Albumin 11/22/20 11/22/20 11/22/20 17:15 18:17 19:01 WBC MCHC Neutrophils # (Manual) Monocytes # (Manual) VBG pCO2 VBG HCO3 Sodium Potassium Chloride Carbon Dioxide BUN Creatinine Glucose POC Glucose (mg/dL) 399 H 354 H 307 H Phosphorus Magnesium AST ALT Creatine Kinase Troponin I Total Protein Albumin 11/22/20 11/22/20 11/22/20 20:03 20:57 21:53 WBC MCHC Neutrophils # (Manual) Monocytes # (Manual) VBG pCO2 VBG HCO3 Sodium Potassium Chloride Carbon Dioxide BUN Creatinine Glucose POC Glucose (mg/dL) 207 H 150 H 126 H Phosphorus Magnesium AST ALT Creatine Kinase Troponin I Total Protein Albumin 11/22/20 11/22/20 11/23/20 23:02 23:16 00:57 WBC MCHC Neutrophils # (Manual) Monocytes # (Manual) VBG pCO2 VBG HCO3 Sodium Potassium Chloride Carbon Dioxide BUN Creatinine Glucose POC Glucose (mg/dL) 52 L 147 H 110 H Phosphorus Magnesium AST ALT Creatine Kinase Troponin I Total Protein Albumin 11/23/20 11/23/20 11/23/20 02:00 02:59 03:58 WBC MCHC Neutrophils # (Manual) Monocytes # (Manual) VBG pCO2 VBG HCO3 Sodium Potassium Chloride Carbon Dioxide BUN Creatinine Glucose POC Glucose (mg/dL) 127 H 134 H 123 H Phosphorus Magnesium AST ALT Creatine Kinase Troponin I Total Protein Albumin 11/23/20 11/23/20 11/23/20 04:58 05:54 07:12 WBC MCHC Neutrophils # (Manual) Monocytes # (Manual) VBG pCO2 VBG HCO3 Sodium Potassium Chloride Carbon Dioxide BUN Creatinine Glucose POC Glucose (mg/dL) 121 H 118 H 146 H Phosphorus Magnesium AST ALT Creatine Kinase Troponin I Total Protein Albumin 11/23/20 11/23/20 11/23/20 08:02 08:40 08:40 WBC 19.6 H MCHC Neutrophils # (Manual) Monocytes # (Manual) VBG pCO2 VBG HCO3 Sodium 146 H Potassium 3.2 L Chloride 119 H Carbon Dioxide 19 L BUN 86 H Creatinine 2.14 H Glucose 194 H POC Glucose (mg/dL) 159 H Phosphorus Magnesium AST ALT Creatine Kinase Troponin I Total Protein Albumin 11/23/20 11/23/20 11/23/20 09:03 09:51 11:02 WBC MCHC Neutrophils # (Manual) Monocytes # (Manual) VBG pCO2 VBG HCO3 Sodium Potassium Chloride Carbon Dioxide BUN Creatinine Glucose POC Glucose (mg/dL) 206 H 194 H 249 H Phosphorus Magnesium AST ALT Creatine Kinase Troponin I Total Protein Albumin 11/23/20 11:59 WBC MCHC Neutrophils # (Manual) Monocytes # (Manual) VBG pCO2 VBG HCO3 Sodium Potassium Chloride Carbon Dioxide BUN Creatinine Glucose POC Glucose (mg/dL) 274 H Phosphorus Magnesium AST ALT Creatine Kinase Troponin I Total Protein Albumin Assessment and Plan Assessment: Patient right gaze deviation with moving only the right side only is likely due acute to subacue ischemic stroke. Likely due to cardioembolic (Atrial fi brillation) Also component of altered mental status due to metabolic encephalopathy (Acute on chronic kidney insuffiency, DKA, elevated LFT's). New onset Atrial fibrillation on heparin drip. Acute on chronic kidney insufficiency Mild Elevated liver function test DKA--resolved Multiple electrolyte abnormality (mild hypokalemia mild hypernatremia) Reported history of dementia Peripheral neuropathy Plan: I ordered a stat CT of the head. I notified the nurse to place the heparin drip on hold for now. After this T the head will make further recommendation regarding the rest of stroke workup. Stat EEG is ordered by the primary team is pending to be done. Regarding the's questionable abnormal movements of upper extremity we'll wait on the what the CT of the head in the EEG shows and if she has any further episodes always start the patient on prophylactic the Keppra 500 mg every 12 hours. TSH is ordered is a pending to be done. Cardiology is on board. We'll defer correction of patient's uncontrolled sugar as well as electrolyte imbalance to the primary team. We'll defer the rest of the medical management to the primary team. Plan was discussed with the patient's nurse. UPDATE: CT of the head shows acute/subacute infarct in the right parietal lobe pos teriorly watershed distribution over 4-5 cm area of the brain parenchyma. There is background mild to moderate diffuse age-related cerebral atrophy and moderate to severe chronic small vessel ischemic changes noted. I personally reviewed it and I felt the this looks more subacute ischemic stroke over the right parietal and I felt there is subacute also over the left inferior frontal subcortical region. The ischemic stroke over the right parietal seems a large wedge-shaped ischemic stroke I ordered carotid duplex. I ordered lipid panel. The patient is a to have the the heparin drip held and then will make recommendation of restarting the heparin drip/anticoagulation down the line (possibly will consider restarting it in 3-4 days from now to avoid hemoragic coversion of subacute ischemic stroke). If cardiology feels the benefit outweighs the risk of restarting heparin then recommend avoid any heparin drip boluses. And to keep the PTT between 45-60. Started the patient on aspirin 300 mg suppository in the meantime and increased Lipitor from 10 mg to 40mg qhs . PT, OT and PERFORMANCE SPECIALIST are consulted. Because the patient had a large right parietal white shaped stroke which increases risk of the procedure and because of the patient shaken of extremities possibly concerning of procedure I started the patient on Keppra 500 mg every 12 hours and loaded the patient with the Keppra 1000 mg once. The plan is discussed with the patient's granddaughter who stated she does not want any further intervention if patient condition does not improve. Also per granddaughter she stated she had a CT of head at outside facility and she was told "they not know if she had a stroke or not per imaging" The plan is discussed with the patient primary team and her nurse. Thank you for the consultation. Clark Kinsey M.D. Neuro-hospitalist Time with Patient: Less than 30
--- NOTE | 2020-11-23 13:24 | CT ---
EXAMINATION TYPE: CT brain wo con DATE OF EXAM: 11/23/2020 HISTORY: R/O Stroke, acute onset neuro deficit CT DLP: 1173.4 mGycm. Automated Exposure Control for Dose Reduction was Utilized. TECHNIQUE: CT scan of the head is performed without contrast. COMPARISON: Outside CT brain 2 days ago.. FINDINGS: There is no acute intracranial hemorrhage or midline shift identified. There is mild to m oderate diffuse ventricular and sulcal prominence consistent with diffuse age-related cerebral atroph y. There is [id number] low-attenuation in the periventricular white matter consistent with c hronic small vessel ischemic change in patient of this age. There is galindo-white matter blurring is s ulcal effacement in the right parietal lobe posterior watershed distribution over roughly 5.4 x 4.5 x 4.0 cm distribution axial image 38 and coronal image 57. Findings new from outside CT 2 days earlier . The globes are intact and the visualized sinuses are clear. IMPRESSION: New Evolving acute/subacute infarct right parietal lobe posterior watershed distribution over 4 to 5 cm area of brain parenchyma. There is background mild to moderate diffuse age-related ce rebral atrophy and moderate to severe chronic small vessel ischemic change noted. Perfect serve notification to ordering neurologist made at time of dictation. A [place] level critical message alert has been initiated for Aliyah Askew MD via the [employer] Critical Results System on 11/23/2020 1:22 PM. This message alert has been sent to Aliyah Askew MD via the preferences provided by the clinician for the receipt of Radiology Critical Findings. Message ID [id number].
[2020-11-23] MEDS ORDERED: levETIRAcetam IV 1,000 MG in SALINE 1 100ML.BAG IVPB STA (13:31)
[2020-11-23 13:40] LABS: Glucose,Whole Blood 326 mg/dL (75-99)
[2020-11-23 14:12] LABS: T4, Free (Free Thyroxine) 1.55 ng/dL (0.78-2.19)
[2020-11-23 14:21] LABS: Glucose,Whole Blood 330 mg/dL (75-99)
[2020-11-23 15:29] LABS: Glucose,Whole Blood 302 mg/dL (75-99)
[2020-11-23 15:58] LABS: Glucose,Whole Blood 292 mg/dL (75-99)
--- NOTE | 2020-11-23 16:12 | US ---
EXAMINATION TYPE: US carotid duplex BILAT DATE OF EXAM: 11/23/2020 COMPARISON: NONE CLINICAL HISTORY: stroke. EXAM MEASUREMENTS: RIGHT: Peak Systolic Velocity (PSV) cm/sec ----- Right CCA: 69.2 ----- Right ICA: 94.9 ----- Right ECA: 101.1 ICA/CCA ratio: 1.4 RIGHT: End Diastole cm/sec ----- Right CCA: 7.2 ----- Right ICA: 8.2 ----- Right ECA: 4.2 LEFT: Peak Systolic Velocity (PSV) cm/sec ----- Left CCA: 86.2 ----- Left ICA: 176.6 ----- Left ECA: 79.4 ICA/CCA ratio: 2.0 LEFT: End Diastole cm/sec ----- Left CCA: 6.9 ----- Left ICA: 5.2 ----- Left ECA: 0.0 VERTEBRALS (direction of flow): Right Vertebral: Antegrade Left Vertebral: Antegrade Rhythm: Arrhythmia Severe atherosclerotic changes seen bilateral . Technically difficult study, done portable, patient u nable to move, tech not able to well reach patient. IMPRESSION: Suboptimal study. Severe diffuse plaque bilaterally. Cannot exclude significant stenosis 50-69% in the proximal left internal carotid artery. Consider further investigation with CTA or MRA of the neck. Note is made of underlying arrhythmia during real-time scanning, correlate clinically. Criteria for Assigning % of Stenosis / Diameter reduction (Estimation based on the indirect measurements of the internal carotid artery velocities (ICA PSV). 1. Normal (no stenosis)=ICA PSV < 125 cm/s: ratio < 2.0: ICA EDV<40 cm/s. 2. Less than 50% stenosis=ICA PSV < 125 cm/s: ratio < 2.0: ICA EDV<40 cm/s. 3. 50 to 69% stenosis=ICA PSV of 125 to 230 cm/s: ration 2.0 ? 4.0: ICA EDV 40-100 cm/s. 4. Greater than 70% stenosis to near occlusion= ICA PSV > 230 cm/s: ratio > 4.0: ICA EDV > 100 cm/s. 5. Near occlusion= ICA PSV velocities may be low or undetectable: variable ratio and ICA EDV. 6. Total occlusion=unable to detect flow.
[2020-11-23 17:03] LABS: Glucose,Whole Blood 340 mg/dL (75-99)
--- NOTE | 2020-11-23 17:06 | P.PN ---
Subjective Patient was [facility] unresponsive CT of the head at the outside facility was negative for any stroke. Patient is found to be in DKA patient was in severe metabolic encephalopathy because of her diabetic ketoacidosis and acute renal failure because of which are it was believed patient is not responsive. Her DKA improved and patient blood sugars started going up again. After her DKA improved patient started moving her limbs but the patient started moving only right side of the body. Patient was also having some myoclonic activity on the right side which was believed to be secondary to encephalopathy or stroke. Because of which I consulted neurology and obtain a CT of the head without contrast which showed evolving large acute to subacute infarct in the right parietal lobe. And there is a significant chronic microvascular ischemic changes along with cerebral atrophy patient did not have any response or movement on the left side for pain. Although she was moving her right side. Patient has gauged deviated to the right side. After discussion with neurology considering her significant stroke patient's prognosis is poor. Patient also had an episode of atrial fibrillation today cardiology was consulted patient was started on heparin which was recommended by neurology to be stopped because of concerns of transformation of the stroke into a hemorrhagic stroke. Patient was started on aspirin rectally. Patient was started on Keppra prophylactically as well. Patient's son whose next of kin wanted her to be DO NOT RESUSCITATE patient will be DO NOT RESUSCITATE. Discussed at length with the granddaughter as well as son regarding her overall prognosis. Because of the massive stroke at prognosis appears to be poor. My recommendation to both granddaughter and son is to wait and watch and try to correct metabolic abnormalities and by tomorrow if patient was doesn't respond and should strongly consider options like comfort care and hospice in both granddaughter and son are agreeable with that. Other ethecal/legal issues: Patient has a son who barely visits the patient. This was confirmed by both the patient's son and granddaughter. Son calls her once in 2 weeks and doesn't live close to the patient. Patient lives by herself although was frequently visited by grandson and granddaughter for niece and n ephew of the son. Fortunately the grandkids as well as son are in agreement with the plan of DO NOT RESUSCITATE which is in the best interest of the patient. I had discussions with the director of case management, Who had discussion with risk management, I also had discussion with his laboratory chief regarding the next of kin. As per [place] state law the next to kin would be the son. Unless we believe that patient's son is not acting in the best interest of the patient, then the case can be taken to court will decide medical POA or next of kin. Objective - Vital Signs Vital signs: Vital Signs Temp 98.2 F 11/23/20 13:24 Pulse 75 11/23/20 15:32 Resp 24 11/23/20 13:24 BP 154/68 11/23/20 13:24 Pulse Ox 93 L 11/23/20 13:24 Intake & Output 11/22/20 11/23/20 11/23/20 18:59 06:59 18:59 Intake Total 133.825 101.083 16.327 Output Total 3402 074 3198 Balance -895.175 -548.917 -1283.673 Weight 77.111 kg 79.5 kg 79.5 kg Intake: Intake, IV Titration 133.825 101.083 16.327 Amount Diltiazem 125 mg In 0.167 Sodium Chloride 0.9% 100 ml @ 10 MG/HR 10 mls/hr IV .[id number] [facility] Rx#: [id number] Insulin Regular 100 unit 133.825 101.083 16.160 In Sodium Chloride 0.9% 100 ml @ 0.1 UNITS/KG/HR 7.788 mls/hr IV .[id number] [facility] Rx#:[id number] Oral 0 Output: Urine 0144 269 4053 Other: Voiding Method Diaper Diaper Indwelling Catheter Incontinent Incontinent # Bowel Movements 1 - Exam GENERAL: Patient is unresponsive, dry mucous membranes. HEENT: Patient gauge is deviated towards the right No scleral icterus. No conjunctival pallor. Normocephalic, atraumatic. No pharyngeal erythema. No thyromegaly. CARDIOVASCULAR: S1 and S2 present. No murmurs, rubs, or gallops. PULMONARY: Negative. Bilateral expiratory wheezing improved compared to yesterday ABDOMEN: Soft, nontender, nondistended, normoactive bowel sounds. No palpable organomegaly. MUSCULOSKELETAL: No joint swelling or deformity. EXTREMITIES: No cyanosis, clubbing, or pedal edema. NEUROLOGICAL: Patient had no movement on the left side does respond to painful stimuli in the right side does right arm and right leg to painful stimuli. SKIN: No rashes. - Labs CBC & Chem 7: 11/23/20 08:40 11/23/20 08:40 Labs: Abnormal Lab Results - Last 24 Hours (Table) 11/22/20 11/22/20 11/22/20 Range/Units 17:15 18:17 19:01 WBC (3.8-10.6) k/uL Sodium (137-145) mmol/L Potassium (3.5-5.1) mmol/L Chloride (98-107) mmol/L Carbon Dioxide (22-30) mmol/L BUN (7-17) mg/dL Creatinine (0.52-1.04) mg/dL Glucose (74-99) mg/dL POC Glucose (mg/dL) 399 H 354 H 307 H (75-99) mg/dL Troponin I (0.000-0.034) ng/mL TSH (0.465-4.680) mIU/L 11/22/20 11/22/20 11/22/20 Range/Units 20:03 20:57 21:53 WBC (3.8-10.6) k/uL Sodium (137-145) mmol/L Potassium (3.5-5.1) mmol/L Chloride (98-107) mmol/L Carbon Dioxide (22-30) mmol/L BUN (7-17) mg/dL Creatinine (0.52-1.04) mg/dL Glucose (74-99) mg/dL POC Glucose (mg/dL) 207 H 150 H 126 H (75-99) mg/dL Troponin I (0.000-0.034) ng/mL TSH (0.465-4.680) mIU/L 11/22/20 11/22/20 11/23/20 Range/Units 23:02 23:16 00:57 WBC (3.8-10.6) k/uL Sodium (137-145) mmol/L Potassium (3.5-5.1) mmol/L Chloride (98-107) mmol/L Carbon Dioxide (22-30) mmol/L BUN (7-17) mg/dL Creatinine (0.52-1.04) mg/dL Glucose (74-99) mg/dL POC Glucose (mg/dL) 52 L 147 H 110 H (75-99) mg/dL Troponin I (0.000-0.034) ng/mL TSH (0.465-4.680) mIU/L 11/23/20 11/23/20 11/23/20 Range/Units 02:00 02:59 03:58 WBC (3.8-10.6) k/uL Sodium (137-145) mmol/L Potassium (3.5-5.1) mmol/L Chloride (98-107) mmol/L Carbon Dioxide (22-30) mmol/L BUN (7-17) mg/dL Creatinine (0.52-1.04) mg/dL Glucose (74-99) mg/dL POC Glucose (mg/dL) 127 H 134 H 123 H (75-99) mg/dL Troponin I (0.000-0.034) ng/mL TSH (0.465-4.680) mIU/L 11/23/20 11/23/20 11/23/20 Range/Units 04:58 05:54 07:12 WBC (3.8-10.6) k/uL Sodium (137-145) mmol/L Potassium (3.5-5.1) mmol/L Chloride (98-107) mmol/L Carbon Dioxide (22-30) mmol/L BUN (7-17) mg/dL Creatinine (0.52-1.04) mg/dL Glucose (74-99) mg/dL POC Glucose (mg/dL) 121 H 118 H 146 H (75-99) mg/dL Troponin I (0.000-0.034) ng/mL TSH (0.465-4.680) mIU/L 11/23/20 11/23/20 11/23/20 Range/Units 08:02 08:40 08:40 WBC 19.6 H (3.8-10.6) k/uL Sodium 146 H (137-145) mmol/L Potassium 3.2 L (3.5-5.1) mmol/L Chloride 119 H (98-107) mmol/L Carbon Dioxide 19 L (22-30) mmol/L BUN 86 H (7-17) mg/dL Creatinine 2.14 H (0.52-1.04) mg/dL Glucose 194 H (74-99) mg/dL POC Glucose (mg/dL) 159 H (75-99) mg/dL Troponin I (0.000-0.034) ng/mL TSH (0.465-4.680) mIU/L 11/23/20 11/23/20 11/23/20 Range/Units 09:03 09:51 11:02 WBC (3.8-10.6) k/uL Sodium (137-145) mmol/L Potassium (3.5-5.1) mmol/L Chloride (98-107) mmol/L Carbon Dioxide (22-30) mmol/L BUN (7-17) mg/dL Creatinine (0.52-1.04) mg/dL Glucose (74-99) mg/dL POC Glucose (mg/dL) 206 H 194 H 249 H (75-99) mg/dL Troponin I (0.000-0.034) ng/mL TSH (0.465-4.680) mIU/L 11/23/20 11/23/20 11/23/20 Range/Units 11:22 11:22 11:59 WBC (3.8-10.6) k/uL Sodium (137-145) mmol/L Potassium (3.5-5.1) mmol/L Chloride (98-107) mmol/L Carbon Dioxide (22-30) mmol/L BUN (7-17) mg/dL Creatinine (0.52-1.04) mg/dL Glucose (74-99) mg/dL POC Glucose (mg/dL) 274 H (75-99) mg/dL Troponin I 0.143 H* (0.000-0.034) ng/mL TSH 0.359 L (0.465-4.680) mIU/L 11/23/20 11/23/20 11/23/20 Range/Units 13:39 14:19 15:28 WBC (3.8-10.6) k/uL Sodium (137-145) mmol/L Potassium (3.5-5.1) mmol/L Chloride (98-107) mmol/L Carbon Dioxide (22-30) mmol/L BUN (7-17) mg/dL Creatinine (0.52-1.04) mg/dL Glucose (74-99) mg/dL POC Glucose (mg/dL) 326 H 330 H 302 H (75-99) mg/dL Troponin I (0.000-0.034) ng/mL TSH (0.465-4.680) mIU/L 11/23/20 Range/Units 15:56 WBC (3.8-10.6) k/uL Sodium (137-145) mmol/L Potassium (3.5-5.1) mmol/L Chloride (98-107) mmol/L Carbon Dioxide (22-30) mmol/L BUN (7-17) mg/dL Creatinine (0.52-1.04) mg/dL Glucose (74-99) mg/dL POC Glucose (mg/dL) 292 H (75-99) mg/dL Troponin I (0.000-0.034) ng/mL TSH (0.465-4.680) mIU/L Assessment and Plan Plan: - unresponsiveness, altered mental status and obtundation: Patient appears to have acute cerebrovascular accident involving the right cerebral hemisphere , right parietal cortex posterior watershed distribution area. Neurology evaluated the patient. IV heparin was discontinued which was initiated by cardiology for atrial fibrillation. Patient still has significant metabolic acidosis and significant metabolic abnormalities with elevated BN of 86 which is better compared to yesterday and patient mental status did improve a bit after the metabolic care abnormalities were corrected. Patient is presently on rectal aspirin, carotid Doppler was ordered. -Myoclonic activity on the right side secondary to possible severe encephalopathy neurology was consulted and patient was started on prophylactic Keppra and EEG was ordered -New onset atrial fibrillation: Patient is not on anticoagulation because of concerns of hemorrhagic conversion of her stroke. Diabetic keto acidosis: Keto acidosis improved patient will remain on the IV insulin because of highly fluctuating blood sugars -Severe dehydration: Continue with IV fluids -Hypochloremia and hyponatremia: Secondary to normal saline which was switched to half-normal saline -Acute renal failure prerenal azotemia unsure whether patient has chronic kidney disease as baseline creatinine is not available patient is on IV fluids as mentioned above. -Metabolic acidosis: Patient has both anion gap and non-anion gap metabolic acidosis 7 hypertension: e. -Type 2 diabetes mellitus uncontrolled elevated blood sugars patient is insulin- dependent diabetic -Hyperlipidemia -DVT prophylaxis with subcutaneous heparin CODE STATUS: DO NOT RESUSCITATE
--- NOTE | 2020-11-23 17:14 | EEG ---
ELECTROENCEPHALOGRAM REPORT DATE OF SERVICE: 11/23/2020. CLINICAL HISTORY: This is a 75-year-old woman with newly diagnosis of subacute right parietal ischemic stroke who is having shaking of the bilateral upper extremities and continues to be in altered mental status. This video EEG is obtained to evaluate for seizure and epileptiform activity. Relevant medication is Keppra. EEG TYPE: A routine 21-channel EEG is performed with video using the 10/20 electrode placement system. DESCRIPTION: Wakefulness and drowsiness are obtained. During wakefulness state, the background consists of 2.5 to 3.5 hertz delta activity and at few epoch background consist of 5 to 5.5 hertz theta activity. During drowsiness there is slowing and attenuation of the background activity. There is no physiological stage II sleep. There is occasional delta slowing over the right hemisphere. INTERICTAL AND ICTAL: There are rare sharp and slow wave maximum over the FP2 derivative. There is no seizure seen during the study. ACTIVATION PROCEDURE: Photic stimulation did not evoke a posterior driving response. There is no abnormality during the photic stimulation. Hyperventilation is not performed. CLINICAL INTERPRETATION: This is an abnormal routine EEG. The background slowing is suggestive of severe encephalopathy due to metabolic derangement or could be due to structural cerebral dysfunction. The rare epileptiform discharges over the right frontal increase the risk of seizure. There are no seizures during this study. The occasional delta slowing over the right hemisphere is consistent with the patient's history of stroke. Clinical correlation is recommended. JASBIR / JAYCE: [id number] / MTDD
[2020-11-23] MEDS ORDERED: LORazepam 2 MG/ML INJ IV STA (17:15)
[2020-11-23] MEDS: ASPIRIN 300 MG SUPP RECTAL SCH (17:44)
[2020-11-23] MEDS: INSULIN REGULAR 100 UNIT in SODIUM CHLORIDE 0.9% 100 ML IV SCH (17:44)
[2020-11-23 18:09] LABS: Glucose,Whole Blood 327 mg/dL (75-99)
[2020-11-23 19:02] LABS: Glucose,Whole Blood 308 mg/dL (75-99)
[2020-11-23 20:07] LABS: Glucose,Whole Blood 284 mg/dL (75-99)
[2020-11-23] MEDS: levETIRAcetam IV 500 MG in SODIUM CHLORIDE 0.9% 100 ML IVPB SCH (20:52)
[2020-11-23 21:27] LABS: Glucose,Whole Blood 267 mg/dL (75-99)
[2020-11-23] MEDS: FAMOTIDINE 20 MG/2 ML VIAL IV SCH (22:04)
[2020-11-23] MEDS: ATORVASTATIN 40 MG TAB PO SCH (22:04)
[2020-11-23 22:15] LABS: Glucose,Whole Blood 234 mg/dL (75-99)
[2020-11-23 23:04] LABS: Glucose,Whole Blood 235 mg/dL (75-99)
[2020-11-24 00:23] LABS: Glucose,Whole Blood 196 mg/dL (75-99)
[2020-11-24 00:51] LABS: Glucose,Whole Blood 201 mg/dL (75-99)
[2020-11-24 02:04] LABS: Glucose,Whole Blood 167 mg/dL (75-99)
[2020-11-24] MEDS: HEPARIN SODIUM,PORCINE/PF 5,000 UNIT/0.5 ML SYRINGE SQ SCH ×4 (02:34→23:28)
[2020-11-24 03:43] LABS: Glucose,Whole Blood 123 mg/dL (75-99)
[2020-11-24 04:36] LABS: Glucose,Whole Blood 111 mg/dL (75-99)
[2020-11-24 05:51] LABS: Glucose,Whole Blood 130 mg/dL (75-99)
[2020-11-24 06:26] LABS: Glucose,Whole Blood 175 mg/dL (75-99)
[2020-11-24] MEDS: INSULIN REGULAR 100 UNIT in SODIUM CHLORIDE 0.9% 100 ML IV SCH ×2 (06:57→18:29)
[2020-11-24 08:08] LABS: Glucose,Whole Blood 179 mg/dL (75-99)
[2020-11-24 09:04] LABS: Glucose,Whole Blood 234 mg/dL (75-99)
--- NOTE | 2020-11-24 09:13 | CT ---
EXAMINATION TYPE: CT brain wo con DATE OF EXAM: 11/24/2020 COMPARISON: 11/23/2020 INDICATION: evaluate stroke progression DLP: 1129.4 mGycm, Automated exposure control for dose reduction was used. CONTRAST: None CT of the brain is performed utilizing 3 mm thick sections through the posterior fossa and 3 mm thick sections through the remaining calvarium. Study is performed within 24 hours of arrival to the hosp ital. No abnormal hyperdensity is present to suggest an acute intracranial hemorrhage. No hemorrhagic conve rsion of the infarct is evident. No mass lesion is evident. The right watershed infarct is again evident. There appears to be normal maturation over the interval . Extension is not evident. Scattered periventricular white matter hypodensity is again evident likel y on the basis of chronic white matter ischemic changes. Ventricles and sulci are prominent for the patient age. Some effacement of local sulci adjacent to t he infarct are evident. Paranasal sinuses and mastoid air cells within the [id number] are clear. Hyperostosis frontalis in ternus is present, normal variant. IMPRESSIONS: 1. There appears to be some normal maturation of the right watershed infarct. No extension or hemor rhagic conversion is evident. 2. Chronic periventricular white matter changes
[2020-11-24 09:33] LABS: Basophils % (A) 0 %; Eosinophils % (A) 0 %; HCT 41.1 % (34.0-46.0); HGB 13.4 gm/dL (11.4-16.0); Lymphocytes # (A) 1.2 k/uL (1.0-4.8); Lymphocytes % (A) 7 %; MCH 31.1 pg (25.0-35.0); MCHC 32.6 g/dL (31.0-37.0); MCV 95.4 fL (80.0-100.0); Mean Platelet Volume 8.3; Monocytes # (A) 0.6 k/uL (0-1.0); Monocytes % (A) 3 %; Neutrophils # (A) 16.1 k/uL (1.3-7.7); Neutrophils % (A) 89 %; Platelet Count 220 k/uL (150-450); RBC 4.31 m/uL (3.80-5.40); RDW 12.9 % (11.5-15.5); WBC 18.1 k/uL (3.8-10.6)
[2020-11-24] MEDS: IPRATROPIUM-ALBUTEROL 3 ML NEB INHALATION SCH ×4 (09:45→19:36)
[2020-11-24] MEDS: ASPIRIN 300 MG SUPP RECTAL SCH (09:46)
[2020-11-24] MEDS: D5-0.45% NACL WITH KCL 20MEQ/L 1,000 ML IV SCH ×3 (09:46→20:50)
[2020-11-24] MEDS: levETIRAcetam IV 500 MG in SODIUM CHLORIDE 0.9% 100 ML IVPB SCH ×2 (09:47→20:50)
[2020-11-24 09:52] LABS: INR 0.9 (<1.2); Prothrombin Time 9.5 sec (9.0-12.0)
[2020-11-24 09:56] LABS: Cholesterol 176 mg/dL (<200); HDL Cholesterol 40 mg/dL (40-60); LDL Cholesterol,Calculated 92 mg/dL (0-99); Triglycerides 220 mg/dL (<150)
[2020-11-24 10:00] LABS: Calcium 8.9 mg/dL (8.4-10.2); Potassium 3.4 mmol/L (3.5-5.1)
[2020-11-24 10:06] LABS: Glucose,Whole Blood 237 mg/dL (75-99)
[2020-11-24] MEDS: amLODIPine 5 MG TAB PO SCH ×2 (10:41→20:47)
[2020-11-24] MEDS: EZETIMIBE 10 MG TAB PO SCH (10:41)
[2020-11-24] MEDS: allopurinoL 100 MG TAB PO SCH ×2 (10:41→20:47)
[2020-11-24] MEDS: METOPROLOL TARTRATE 25 MG TAB PO SCH ×2 (10:41→20:47)
--- NOTE | 2020-11-24 11:02 | P.NPCON ---
History of Present Illness - Reason for Consult acute renal failure - History of Present Illness Reason for consultation: Acute kidney injury History of present illness: Patient is a 75-year-old female seen in renal consultation for acute kidney injury. Creatinine on November 22 was 3.08 and is down to 1.49 today. Patient was transferred from another facility for DKA. Patient was apparently found unresp onsive at home and was not seen by the family the day she was sent to the hospital. She is currently maintained on insulin drip as well as half-normal saline. Potassium is also being replaced. She also went into A. fib with RVR and is maintained on Cardizem drip. Patient's brain CT yesterday revealed an acute right parietal stroke. Patient is currently on room air. Blood pressure stable. Patient is not a reliable historian. Blood sugar this morning was 196. She has a Bethea catheter. Nonoliguric. She does have long-standing history of diabetes. She was also on triamterene and hydrochlorothiazide outpatient which is currently held. Vital signs are stable. General: Agitated. HEENT: Head exam is unremarkable. LUNGS: Breath sounds decreased. HEART: Rate and Rhythm are regular. ABDOMEN: Soft, nondistended. EXTREMITITES: No edema. 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 Past Anesthesia/Blood Transfusion Reactions: No Reported Reaction Smoking Status: Former smoker - Past Family History Father Family Medical History: Dementia Additional Family Medical History / Comment(s): Heart disease. Mother Additional Family Medical History / Comment(s): Heart disease. Lived to be 92 yrs old. Medications and Allergies Home Medications Medication Instructions Recorded Confirmed Type Ergocalciferol [Vitamin D2 (1250 1,250 mcg PO Q7D 11/22/20 11/22/20 History Mcg = 02717 Iu)] Ezetimibe [Zetia] 10 mg PO DAILY 11/22/20 11/22/20 History Insulin Glargine [Lantus] 46 units SQ HS 11/22/20 11/22/20 History Lovastatin [Mevacor] 40 mg PO HS 11/22/20 11/22/20 History Metoprolol Tartrate 25 mg PO BID 11/22/20 11/22/20 History Triamterene-Hctz 37.5-25Mg 1 tab PO DAILY 11/22/20 11/22/20 History [Maxzide 37.5-25] allopurinoL [Zyloprim] 100 mg PO BID 11/22/20 11/22/20 History amLODIPine [Norvasc] 5 mg PO BID 11/22/20 11/22/20 History glipiZIDE [Glucotrol] 5 mg PO AC-BRKFST 11/22/20 11/22/20 History Allergies Allergy/AdvReac Type Severity Reaction Status Date / Time Iodinated Contrast Media AdvReac Unknown Verified 11/22/20 06:29 Physical Exam Vitals: Vital Signs Temp Pulse Pulse Resp BP Pulse Ox 11/24/20 09:51 59 L 11/24/20 09:45 60 11/24/20 09:20 98.1 F 84 18 165/79 96 11/24/20 04:00 24 120/64 90 L 11/24/20 02:00 84 26 H 11/24/20 00:00 98.2 F 84 26 H 126/69 92 L 11/23/20 20:00 74 24 11/23/20 19:03 54 L 11/23/20 18:51 56 L 11/23/20 16:00 98.3 F 74 24 123/68 95 11/23/20 15:32 75 11/23/20 15:23 72 11/23/20 13:24 98.2 F 153 H 24 154/68 93 L 11/23/20 12:29 160 H 25 H 146/67 95 11/23/20 12:00 98.6 F 157 H 25 H 130/62 95 11/23/20 11:54 156 H 32 H 158/82 94 L 11/23/20 11:52 156 H 25 H 136/61 95 Intake and Output 11/23/20 11/24/20 11/24/20 22:59 06:59 14:59 Intake Total 44.574 55.185 Output Total 700 750 600 Balance -655.426 -694.815 -600 Intake: Intake, IV Titration 44.574 55.185 Amount Insulin Regular 100 unit 44.574 55.185 In Sodium Chloride 0.9% 100 ml @ 0.1 UNITS/KG/HR 7.788 mls/hr IV .[id number] [facility] Rx#:[id number] Output: Urine 700 750 600 Other: Voiding Method Indwelling Catheter Indwelling Catheter # Bowel Movements 1 Weight 77.5 kg Results - Lab Results Most recent lab results Calcium 8.9 mg/dL (8.4-10.2) 11/24/20 08:26 Phosphorus 3.3 mg/dL (2.5-4.5) 11/23/20 08:40 Magnesium 2.3 mg/dL (1.6-2.3) 11/23/20 11:22 11/24/20 08:26 11/24/20 08:26 Assessment and Plan Plan: Assessment: 1. Acute kidney injury mostly prerenal secondary to hypovolemia from DKA as well as Maxide. Creatinine 3.08 on admission and is 1.49 today. Unknown baseline renal function. 2. DKA maintained on insulin drip. 3. Hypernatremia from lack of oral water intake. 4. Hypokalemia from poor intake and intracellular shifting from IV insulin. 5. Acute CVA. Neurology following. 6. Benign hypertension. 7. A. fib with RVR maintained on Cardizem drip. Plan: Maintain half-normal saline with potassium replacement. Hold diuretics. Avoid nephrotoxins. Continue to monitor renal function and urine output. Repeat potassium level this evening. Thank you for the consultation. I will continue to follow the patient with you during her hospital stay.
[2020-11-24 11:06] LABS: Glucose,Whole Blood 251 mg/dL (75-99)
[2020-11-24 11:56] LABS: Glucose,Whole Blood 280 mg/dL (75-99)
--- NOTE | 2020-11-24 12:30 | P.PN ---
Subjective Patient is unresponsive, not alert and oriented. Information has been obtained from chart review and family. This is a pleasant 75-year-old female past medical history significant for type 2 diabetes, hypertension, hyperlipidemia, chronic kidney disease, renal cancer s/p surgery per family. 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 We have been ask ed to see in consultation for atrial fibrillation with rapid ventricular response and elevated troponin. Patient was found on 11/21/20 on the ground in the bathroom by her granddaughter. Brain CT revealed new evolving acute/subacute infarct right parietal lobe. Patient was started on cardizem drip, heparin drip has been on hold per Neuro. Troponin trend 0.2-->0.11. BNP elevated 14,200, TSH low, Free T4 within normal limits, COVID-19 negative. Echocardiogram taken when in Afib with RVR, unable to comment on EF. Patient seen and examined at bedside, continues to be not responsive to verbal stimuli, responsive to painful stimuli. Telemetry tracings indicate patient is in atrial fibrillation HR 90s, overnight appeared to be in sinus mechanism briefly 80s. Laboratory data reviewed on admission sodium 148, potassium 3.4, serum creatinine 1.49 (2.96 on admission), glucose 237, WBC 18.1, Hgb 13.4, Plt 220. troponin elevated 0.28, BNP 14,200, COVID-19 negative . Currently being maintained on, aspirin 300 mg rectal, D5, .5NS, 20meq KCl IV fluids, Cardizem drip at 10 mg an hour, insulin drip, keppra drip. She is unable to take PO medications: not taking amlodipine or metoprolol SBP ranges overnight 120s. BP this morning 165/79 HR 84, afebrile, she is on room air SpO2 96%. DIAGNOSTICS EKG on 11/22/2020 reveals sinus mechanism HR 72 EKG 11/23 AM reveals multiple atrial tachycardia EKG afternoon does appear to be in atrial fibrillation with rapid ventricular response Echocardiogram 11/23- taken when in Afib with RVR, unable to comment on EF. Chest xray Patient is rotated. No acute cardiopulmonary process. cardiac silhouette stable and enlarged. Extensive coronary artery calcifications present CT Brain 11/23 - New easily acute/subacute infarct right parietal lobe posterior watershed distribution over 4-5 cm area of the brain parenchyma. Moderate severe chronic small vessel ischemic change noted EEG 11/23 revealed severe encephalopathy, rare epileptiform discharges over the right frontal increase risk of seizure. Carotid Dopplers 11/23- Severe diffuse plaque bilaterally, significant stenosis 50-69% in the proximal left ICA. PHYSICAL EXAMINATION CONSTITUTIONAL: No apparent distress. CHEST EXAMINATION: Lungs are diminished to auscultation. No chest wall tenderness is noted on palpation or with deep breathing. HEART EXAMINATION: Irregular rate and rhythm. S1, S2 heard. No murmurs, gallops or rub. ABDOMEN: Soft, nontender. Positive bowel sounds. EXTREMITIES: 2+ peripheral pulses, no lower extremity edema and no calf tenderness. 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 -Continue to monitor renal function and electrolytes -Further recommendations based on clinical course Nurse Practitioner note has been reviewed, I agree with a documented findings and plan of care. Patient was seen and examined. Objective - Vital Signs Vital signs: Vital Signs Temp 98.1 F 11/24/20 09:20 Pulse 59 L 11/24/20 09:51 Resp 18 11/24/20 09:20 BP 165/79 11/24/20 09:20 Pulse Ox 96 11/24/20 09:20 Intake & Output 11/23/20 11/24/20 11/24/20 18:59 06:59 18:59 Intake Total 24.019 85.913 Output Total 1300 750 Balance -1275.981 -664.087 Weight 79.5 kg 77.5 kg Intake: Intake, IV Titration 24.019 85.913 Amount Diltiazem 125 mg In 0.167 Sodium Chloride 0.9% 100 ml @ 10 MG/HR 10 mls/hr IV .[id number] [facility] Rx#: [id number] Insulin Regular 100 unit 23.852 85.913 In Sodium Chloride 0.9% 100 ml @ 0.1 UNITS/KG/HR 7.788 mls/hr IV .[id number] [facility] Rx#:[id number] Output: Urine 1300 750 Other: Voiding Method Indwelling Catheter Indwelling Catheter # Bowel Movements 1 - Labs CBC & Chem 7: 11/24/20 08:26 11/24/20 08:26 Labs: Abnormal Lab Results - Last 24 Hours (Table) 11/23/20 11/23/20 11/23/20 Range/Units 11:02 11:22 11:22 WBC (3.8-10.6) k/uL Neutrophils # (1.3-7.7) k/uL APTT (22.0-30.0) sec Sodium (137-145) mmol/L Potassium (3.5-5.1) mmol/L Chloride (98-107) mmol/L Carbon Dioxide (22-30) mmol/L BUN (7-17) mg/dL Creatinine (0.52-1.04) mg/dL Glucose (74-99) mg/dL POC Glucose (mg/dL) 249 H (75-99) mg/dL Troponin I 0.143 H* (0.000-0.034) ng/mL Triglycerides (<150) mg/dL TSH 0.359 L (0.465-4.680) mIU/L 11/23/20 11/23/20 11/23/20 Range/Units 11:59 13:39 14:19 WBC (3.8-10.6) k/uL Neutrophils # (1.3-7.7) k/uL APTT (22.0-30.0) sec Sodium (137-145) mmol/L Potassium (3.5-5.1) mmol/L Chloride (98-107) mmol/L Carbon Dioxide (22-30) mmol/L BUN (7-17) mg/dL Creatinine (0.52-1.04) mg/dL Glucose (74-99) mg/dL POC Glucose (mg/dL) 274 H 326 H 330 H (75-99) mg/dL Troponin I (0.000-0.034) ng/mL Triglycerides (<150) mg/dL TSH (0.465-4.680) mIU/L 11/23/20 11/23/20 11/23/20 Range/Units 15:28 15:56 16:58 WBC (3.8-10.6) k/uL Neutrophils # (1.3-7.7) k/uL APTT (22.0-30.0) sec Sodium (137-145) mmol/L Potassium (3.5-5.1) mmol/L Chloride (98-107) mmol/L Carbon Dioxide (22-30) mmol/L BUN (7-17) mg/dL Creatinine (0.52-1.04) mg/dL Glucose (74-99) mg/dL POC Glucose (mg/dL) 302 H 292 H (75-99) mg/dL Troponin I 0.111 H* (0.000-0.034) ng/mL Triglycerides (<150) mg/dL TSH (0.465-4.680) mIU/L 11/23/20 11/23/20 11/23/20 Range/Units 16:58 17:02 18:07 WBC (3.8-10.6) k/uL Neutrophils # (1.3-7.7) k/uL APTT 21.4 L (22.0-30.0) sec Sodium (137-145) mmol/L Potassium (3.5-5.1) mmol/L Chloride (98-107) mmol/L Carbon Dioxide (22-30) mmol/L BUN (7-17) mg/dL Creatinine (0.52-1.04) mg/dL Glucose (74-99) mg/dL POC Glucose (mg/dL) 340 H 327 H (75-99) mg/dL Troponin I (0.000-0.034) ng/mL Triglycerides (<150) mg/dL TSH (0.465-4.680) mIU/L 11/23/20 11/23/20 11/23/20 Range/Units 19:00 20:05 21:23 WBC (3.8-10.6) k/uL Neutrophils # (1.3-7.7) k/uL APTT (22.0-30.0) sec Sodium (137-145) mmol/L Potassium (3.5-5.1) mmol/L Chloride (98-107) mmol/L Carbon Dioxide (22-30) mmol/L BUN (7-17) mg/dL Creatinine (0.52-1.04) mg/dL Glucose (74-99) mg/dL POC Glucose (mg/dL) 308 H 284 H 267 H (75-99) mg/dL Troponin I (0.000-0.034) ng/mL Triglycerides (<150) mg/dL TSH (0.465-4.680) mIU/L 11/23/20 11/23/20 11/24/20 Range/Units 22:13 23:02 00:21 WBC (3.8-10.6) k/uL Neutrophils # (1.3-7.7) k/uL APTT (22.0-30.0) sec Sodium (137-145) mmol/L Potassium (3.5-5.1) mmol/L Chloride (98-107) mmol/L Carbon Dioxide (22-30) mmol/L BUN (7-17) mg/dL Creatinine (0.52-1.04) mg/dL Glucose (74-99) mg/dL POC Glucose (mg/dL) 234 H 235 H 196 H (75-99) mg/dL Troponin I (0.000-0.034) ng/mL Triglycerides (<150) mg/dL TSH (0.465-4.680) mIU/L 11/24/20 11/24/20 11/24/20 Range/Units 00:50 02:02 03:41 WBC (3.8-10.6) k/uL Neutrophils # (1.3-7.7) k/uL APTT (22.0-30.0) sec Sodium (137-145) mmol/L Potassium (3.5-5.1) mmol/L Chloride (98-107) mmol/L Carbon Dioxide (22-30) mmol/L BUN (7-17) mg/dL Creatinine (0.52-1.04) mg/dL Glucose (74-99) mg/dL POC Glucose (mg/dL) 201 H 167 H 123 H (75-99) mg/dL Troponin I (0.000-0.034) ng/mL Triglycerides (<150) mg/dL TSH (0.465-4.680) mIU/L 11/24/20 11/24/2021 Range/Units 04:35 05:48 06:25 WBC (3.8-10.6) k/uL Neutrophils # (1.3-7.7) k/uL APTT (22.0-30.0) sec Sodium (137-145) mmol/L Potassium (3.5-5.1) mmol/L Chloride (98-107) mmol/L Carbon Dioxide (22-30) mmol/L BUN (7-17) mg/dL Creatinine (0.52-1.04) mg/dL Glucose (74-99) mg/dL POC Glucose (mg/dL) 111 H 130 H 175 H (75-99) mg/dL Troponin I (0.000-0.034) ng/mL Triglycerides (<150) mg/dL TSH (0.465-4.680) mIU/L 11/24/20 11/24/20 11/24/20 Range/Units 07:48 08:26 08:26 WBC (3.8-10.6) k/uL Neutrophils # (1.3-7.7) k/uL APTT (22.0-30.0) sec Sodium 148 H (137-145) mmol/L Potassium 3.4 L (3.5-5.1) mmol/L Chloride 119 H (98-107) mmol/L Carbon Dioxide 19 L (22-30) mmol/L BUN 61 H (7-17) mg/dL Creatinine 1.49 H (0.52-1.04) mg/dL Glucose 196 H (74-99) mg/dL POC Glucose (mg/dL) 179 H (75-99) mg/dL Troponin I (0.000-0.034) ng/mL Triglycerides 220 H (<150) mg/dL TSH (0.465-4.680) mIU/L 11/24/20 11/24/20 11/24/20 Range/Units 08:26 08:44 09:46 WBC 18.1 H (3.8-10.6) k/uL Neutrophils # 16.1 H (1.3-7.7) k/uL APTT (22.0-30.0) sec Sodium (137-145) mmol/L Potassium (3.5-5.1) mmol/L Chloride (98-107) mmol/L Carbon Dioxide (22-30) mmol/L BUN (7-17) mg/dL Creatinine (0.52-1.04) mg/dL Glucose (74-99) mg/dL POC Glucose (mg/dL) 234 H 237 H (75-99) mg/dL Troponin I (0.000-0.034) ng/mL Triglycerides (<150) mg/dL TSH (0.465-4.680) mIU/L
--- NOTE | 2020-11-24 12:46 | P.GSCN ---
History of Present Illness Consult date: 11/24/20 Reason for Consult: Carotid stenosis Requesting physician: Clark Kinsey History of present illness: This is a 75-year-old woman with a past medical history of diabetes type 2, hypertension, hyperlipidemia, chronic kidney insufficiency, renal cancer status post surgery, peripheral neuropathy who was transferred from outside facility on 11/22/2020 after she was found unresponsive. She was found to be in DKA. Neurology was consulted for altered mental status and there is a concern for seizure because of tremor. Per the patient's nurse she stated that the according to the granddaughter the patient was last known normal on Friday in which the patient the was shopping with her granddaughter. Then the patient was found down on her bathroom floor for an unknown amount of time. As part of her initial work up she had a CT of brain which showed a new evolving acute/subacute infarct right parietal lobe posterior watershed distribution over 4-5 cm area of brain parenchyma. There is background mild to moderate diffuse age-related cerebral atrophy and moderate to severe chronic small vessel ischemic change noted. A carotid ultrasound was ordered which showed a right ICA of 94.9, with an ICA/CCA ratio 1.4. Left ICA 176.6, with the ICA/CCA ratio 2.0, with an estimated 50-69% stenosis. Vascular surgery was consult plan for the patient's carotid stenosis. A repeat CT of the brain was done today which showed some normal maturation of the right watershed infarct. No extension or hemorrhagic conversion is evident. Chronic periventricular white matter changes. A shunt is seen and examined lying in bed, she is nonverbal, she did respond when her name was called and opened her eyes. The patient did follow command and wiggle her right toes when asked, was unable to wiggle her left toes. She did not follow command to squeeze hands. Left upper extremity seemed somewhat flaccid. Right upper extremity was noted to have some jerking motion. Review of Systems ROS unobtainable: due to mental status Past Medical History Past Medical History: Diabetes Mellitus, Hyperlipidemia, Hypertension, Memory Impairment, Osteoarthritis (OA), Renal Disease Additional Past Medical History / Comment(s): IDDM type II, neuropathy bilateral hands/lower legs and feet, diabetic nephropathy, past benign tumor removed from L kidney, significant memory problems per grand daughter, arthritis bilateral hands/knees, Vitamin D deficiency, UTIs History of Any Multi-Drug Resistant Organisms: None Reported Past Surgical History: Cholecystectomy Additional Past Surgical History / Comment(s): Partial L nephrectomy, colonoscopy. Past Anesthesia/Blood Transfusion Reactions: No Reported Reaction Smoking Status: Former smoker - Past Family History Father Family Medical History: Dementia Additional Family Medical History / Comment(s): Heart disease. Mother Additional Family Medical History / Comment(s): Heart disease. Lived to be 92 yrs old. Medications and Allergies Home Medications Medication Instructions Recorded Confirmed Type Ergocalciferol [Vitamin D2 (1250 1,250 mcg PO Q7D 11/22/20 11/22/20 History Mcg = 82880 Iu)] Ezetimibe [Zetia] 10 mg PO DAILY 11/22/20 11/22/20 History Insulin Glargine [Lantus] 46 units SQ HS 11/22/20 11/22/20 History Lovastatin [Mevacor] 40 mg PO HS 11/22/20 11/22/20 History Metoprolol Tartrate 25 mg PO BID 11/22/20 11/22/20 History Triamterene-Hctz 37.5-25Mg 1 tab PO DAILY 11/22/20 11/22/20 History [Maxzide 37.5-25] allopurinoL [Zyloprim] 100 mg PO BID 11/22/20 11/22/20 History amLODIPine [Norvasc] 5 mg PO BID 11/22/20 11/22/20 History glipiZIDE [Glucotrol] 5 mg PO AC-BRKFST 11/22/20 11/22/20 History Allergies Allergy/AdvReac Type Severity Reaction Status Date / Time Iodinated Contrast Media AdvReac Unknown Verified 11/22/20 06:29 Surgical - Exam Vital Signs Temp Pulse Resp BP 97.8 F 86 24 139/61 11/22/20 01:36 11/22/20 01:36 11/22/20 01:36 11/22/20 01:36 General appearance: The patient is ataxic, asleep, opened eyes and responded to name. HET: Head is normocephalic and atraumatic. Neck: Supple without lymphadenopathy. Trachea midline. No carotid bruit. Heart: S1 S2. Regular rate and rhythm. Lungs: No crackles or wheezes are heard. Abdomen: Soft, nontender, nondistended Extremities: Normal skin color and turgor. No cyanosis, rash, ulceration, clubbing, or edema. Good palpable bilateral radial, femoral, and pedal pulses. Neurological: Minimal response, patient nonverbal. Did wiggle her right toes when asked, would not squeeze right hand. Appears to have some flaccidity on the left upper extremity. Unable to move her left toes on demand. Results - Labs 11/24/20 08:26 11/24/20 08:26 Abnormal Lab Results - Last 24 Hours (Table) 11/23/20 11/23/20 11/23/20 Range/Units 11:22 11:22 11:59 WBC (3.8-10.6) k/uL Neutrophils # (1.3-7.7) k/uL APTT (22.0-30.0) sec Sodium (137-145) mmol/L Potassium (3.5-5.1) mmol/L Chloride (98-107) mmol/L Carbon Dioxide (22-30) mmol/L BUN (7-17) mg/dL Creatinine (0.52-1.04) mg/dL Glucose (74-99) mg/dL POC Glucose (mg/dL) 274 H (75-99) mg/dL Troponin I 0.143 H* (0.000-0.034) ng/mL Triglycerides (<150) mg/dL TSH 0.359 L (0.465-4.680) mIU/L 11/23/20 11/23/20 11/23/20 Range/Units 13:39 14:19 15:28 WBC (3.8-10.6) k/uL Neutrophils # (1.3-7.7) k/uL APTT (22.0-30.0) sec Sodium (137-145) mmol/L Potassium (3.5-5.1) mmol/L Chloride (98-107) mmol/L Carbon Dioxide (22-30) mmol/L BUN (7-17) mg/dL Creatinine (0.52-1.04) mg/dL Glucose (74-99) mg/dL POC Glucose (mg/dL) 326 H 330 H 302 H (75-99) mg/dL Troponin I (0.000-0.034) ng/mL Triglycerides (<150) mg/dL TSH (0.465-4.680) mIU/L 11/23/20 11/23/20 11/23/20 Range/Units 15:56 16:58 16:58 WBC (3.8-10.6) k/uL Neutrophils # (1.3-7.7) k/uL APTT 21.4 L (22.0-30.0) sec Sodium (137-145) mmol/L Potassium (3.5-5.1) mmol/L Chloride (98-107) mmol/L Carbon Dioxide (22-30) mmol/L BUN (7-17) mg/dL Creatinine (0.52-1.04) mg/dL Glucose (74-99) mg/dL POC Glucose (mg/dL) 292 H (75-99) mg/dL Troponin I 0.111 H* (0.000-0.034) ng/mL Triglycerides (<150) mg/dL TSH (0.465-4.680) mIU/L 11/23/20 11/23/20 11/23/20 Range/Units 17:02 18:07 19:00 WBC (3.8-10.6) k/uL Neutrophils # (1.3-7.7) k/uL APTT (22.0-30.0) sec Sodium (137-145) mmol/L Potassium (3.5-5.1) mmol/L Chloride (98-107) mmol/L Carbon Dioxide (22-30) mmol/L BUN (7-17) mg/dL Creatinine (0.52-1.04) mg/dL Glucose (74-99) mg/dL POC Glucose (mg/dL) 340 H 327 H 308 H (75-99) mg/dL Troponin I (0.000-0.034) ng/mL Triglycerides (<150) mg/dL TSH (0.465-4.680) mIU/L 11/23/20 11/23/20 11/23/20 Range/Units 20:05 21:23 22:13 WBC (3.8-10.6) k/uL Neutrophils # (1.3-7.7) k/uL APTT (22.0-30.0) sec Sodium (137-145) mmol/L Potassium (3.5-5.1) mmol/L Chloride (98-107) mmol/L Carbon Dioxide (22-30) mmol/L BUN (7-17) mg/dL Creatinine (0.52-1.04) mg/dL Glucose (74-99) mg/dL POC Glucose (mg/dL) 284 H 267 H 234 H (75-99) mg/dL Troponin I (0.000-0.034) ng/mL Triglycerides (<150) mg/dL TSH (0.465-4.680) mIU/L 11/23/20 11/24/20 11/24/20 Range/Units 23:02 00:21 00:50 WBC (3.8-10.6) k/uL Neutrophils # (1.3-7.7) k/uL APTT (22.0-30.0) sec Sodium (137-145) mmol/L Potassium (3.5-5.1) mmol/L Chloride (98-107) mmol/L Carbon Dioxide (22-30) mmol/L BUN (7-17) mg/dL Creatinine (0.52-1.04) mg/dL Glucose (74-99) mg/dL POC Glucose (mg/dL) 235 H 196 H 201 H (75-99) mg/dL Troponin I (0.000-0.034) ng/mL Triglycerides (<150) mg/dL TSH (0.465-4.680) mIU/L 11/24/20 11/24/20 11/24/20 Range/Units 02:02 03:41 04:35 WBC (3.8-10.6) k/uL Neutrophils # (1.3-7.7) k/uL APTT (22.0-30.0) sec Sodium (137-145) mmol/L Potassium (3.5-5.1) mmol/L Chloride (98-107) mmol/L Carbon Dioxide (22-30) mmol/L BUN (7-17) mg/dL Creatinine (0.52-1.04) mg/dL Glucose (74-99) mg/dL POC Glucose (mg/dL) 167 H 123 H 111 H (75-99) mg/dL Troponin I (0.000-0.034) ng/mL Triglycerides (<150) mg/dL TSH (0.465-4.680) mIU/L 11/24/20 11/24/20 11/24/20 Range/Units 05:48 06:25 07:48 WBC (3.8-10.6) k/uL Neutrophils # (1.3-7.7) k/uL APTT (22.0-30.0) sec Sodium (137-145) mmol/L Potassium (3.5-5.1) mmol/L Chloride (98-107) mmol/L Carbon Dioxide (22-30) mmol/L BUN (7-17) mg/dL Creatinine (0.52-1.04) mg/dL Glucose (74-99) mg/dL POC Glucose (mg/dL) 130 H 175 H 179 H (75-99) mg/dL Troponin I (0.000-0.034) ng/mL Triglycerides (<150) mg/dL TSH (0.465-4.680) mIU/L 11/24/20 11/24/20 11/24/20 Range/Units 08:26 08:26 08:26 WBC 18.1 H (3.8-10.6) k/uL Neutrophils # 16.1 H (1.3-7.7) k/uL APTT (22.0-30.0) sec Sodium 148 H (137-145) mmol/L Potassium 3.4 L (3.5-5.1) mmol/L Chloride 119 H (98-107) mmol/L Carbon Dioxide 19 L (22-30) mmol/L BUN 61 H (7-17) mg/dL Creatinine 1.49 H (0.52-1.04) mg/dL Glucose 196 H (74-99) mg/dL POC Glucose (mg/dL) (75-99) mg/dL Troponin I (0.000-0.034) ng/mL Triglycerides 220 H (<150) mg/dL TSH (0.465-4.680) mIU/L 11/24/20 11/24/20 Range/Units 08:44 09:46 WBC (3.8-10.6) k/uL Neutrophils # (1.3-7.7) k/uL APTT (22.0-30.0) sec Sodium (137-145) mmol/L Potassium (3.5-5.1) mmol/L Chloride (98-107) mmol/L Carbon Dioxide (22-30) mmol/L BUN (7-17) mg/dL Creatinine (0.52-1.04) mg/dL Glucose (74-99) mg/dL POC Glucose (mg/dL) 234 H 237 H (75-99) mg/dL Troponin I (0.000-0.034) ng/mL Triglycerides (<150) mg/dL TSH (0.465-4.680) mIU/L Diabetes panel 11/24/20 11/24/20 Range/Units 08:26 08:26 Sodium 148 H (137-145) mmol/L Potassium 3.4 L (3.5-5.1) mmol/L Chloride 119 H (98-107) mmol/L Carbon Dioxide 19 L (22-30) mmol/L BUN 61 H (7-17) mg/dL Creatinine 1.49 H (0.52-1.04) mg/dL Glucose 196 H (74-99) mg/dL Calcium 8.9 (8.4-10.2) mg/dL Triglycerides 220 H (<150) mg/dL HDL Cholesterol 40 (40-60) mg/dL Thyroid panel 11/23/20 Range/Units 11:22 TSH 0.359 L (0.465-4.680) mIU/L Calcium panel 11/24/20 Range/Units 08:26 Calcium 8.9 (8.4-10.2) mg/dL Pituitary panel 11/23/20 11/24/20 Range/Units 11:22 08:26 Sodium 148 H (137-145) mmol/L Potassium 3.4 L (3.5-5.1) mmol/L Chloride 119 H (98-107) mmol/L Carbon Dioxide 19 L (22-30) mmol/L BUN 61 H (7-17) mg/dL Creatinine 1.49 H (0.52-1.04) mg/dL Glucose 196 H (74-99) mg/dL Calcium 8.9 (8.4-10.2) mg/dL TSH 0.359 L (0.465-4.680) mIU/L Adrenal panel 11/24/20 Range/Units 08:26 Sodium 148 H (137-145) mmol/L Potassium 3.4 L (3.5-5.1) mmol/L Chloride 119 H (98-107) mmol/L Carbon Dioxide 19 L (22-30) mmol/L BUN 61 H (7-17) mg/dL Creatinine 1.49 H (0.52-1.04) mg/dL Glucose 196 H (74-99) mg/dL Calcium 8.9 (8.4-10.2) mg/dL - Imaging Additional studies: CT of brain which showed a new evolving acute/subacute infarct right parietal lobe posterior watershed distribution over 4-5 cm area of brain parenchyma. There is background mild to moderate diffuse age-related cerebral atrophy and moderate to severe chronic small vessel ischemic change noted. Carotid US showed a right ICA of 94.9, with an ICA/CCA ratio 1.4. Left ICA 176.6, with the ICA/CCA ratio 2.0, with an estimated 50-69% stenosis. Repeat CT of the brain was done today which showed some normal maturation of the right watershed infarct. No extension or hemorrhagic conversion is evident. Chronic periventricular white matter changes. Assessment and Plan Assessment: 1. Internal carotid artery stenosis 2. Altered mental status change 3. Acute/subacute infarct of the right parietal lobe posteriorly watershed distribution over 4-5 cm area of the brain parenchyma 3. Diabetic ketoacidosis 4. New onset atrial fibrillation Plan: 1. Continue symptomatic and supportive care 2. Range CT and carotid ultrasound reviewed 3. Continue medical management 4. Appreciate recommendations from neurology 5. At this time there are no indications per vascular surgical intervention due to the patient's comorbidities and poor prognosis Thank you for this consultation, we'll be on standby for further need The impression and plan of care has been dictated as directed. Dr. Rajan I performed a history and examination of this patient, discussed the same with the dictator. I agree with the dictator's note ,documented as a scribe. Any additional findings or plans will be noted.
[2020-11-24 12:58] LABS: Glucose,Whole Blood 293 mg/dL (75-99)
[2020-11-24] MEDS: DILTIAZEM 125 MG in SODIUM CHLORIDE 0.9% 100 ML IV SCH (13:59)
[2020-11-24 14:10] LABS: Glucose,Whole Blood 285 mg/dL (75-99)
[2020-11-24 15:37] LABS: Glucose,Whole Blood 271 mg/dL (75-99)
--- NOTE | 2020-11-24 15:56 | P.PN ---
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 Patient is found to be in DKA patient was in severe metabolic encephalopathy because of her diabetic ketoacidosis and acute renal failure because of which are it was believed patient is not responsive. Her DKA improved and patient blood sugars started going up again. After her DKA improved patient started moving her limbs but the patient started moving only right side of the body. Patient was also having some myoclonic activity on the right side which was believed to be secondary to encephalopathy or stroke. Because of which I consulted neurology and obtain a CT of the head without contrast which showed evolving large acute to subacute infarct in the right parietal lobe. And there is a significant chronic microvascular ischemic changes along with cerebral atrophy patient did not have any response or movement on the left side for pain. Although she was moving her right side. Patient has gauged deviated to the right side. After discussion with neurology considering her significant stroke patient's prognosis is poor. Patient also had an episode of atrial fibrillation today cardiology was consulted patient was started on heparin which was recommended by neurology to be stopped because of concerns of transformation of the stroke into a hemorrhagic stroke. Patient was started on aspirin rectally. Patient was started on Keppra prophylactically as well. Patient's son whose next of kin wanted her to be DO NOT RESUSCITATE patient will be DO NOT RESUSCITATE. Discussed at length with the granddaughter as well as son regarding her overall prognosis. Because of the massive stroke at prognosis appears to be poor. Objective - Vital Signs Vital signs: Vital Signs Temp 98.1 F 11/24/20 09:20 Pulse 59 L 11/24/20 09:51 Resp 18 11/24/20 09:20 BP 165/79 11/24/20 09:20 Pulse Ox 96 11/24/20 09:20 Intake & Output 11/23/20 11/24/20 11/24/20 18:59 06:59 18:59 Intake Total 24.019 85.913 5.820 Output Total 1300 750 600 Balance -1275.981 -664.087 -594.180 Weight 79.5 kg 77.5 kg Intake: Intake, IV Titration 24.019 85.913 5.820 Amount Diltiazem 125 mg In 0.167 Sodium Chloride 0.9% 100 ml @ 10 MG/HR 10 mls/hr IV .[id number] KATIE Rx#: [id number] Insulin Regular 100 unit 23.852 85.913 5.820 In Sodium Chloride 0.9% 100 ml @ 0.1 UNITS/KG/HR 7.788 mls/hr IV .[id number] [facility]ATIE Rx#:[id number] Output: Urine 1300 750 600 Other: Voiding Method Indwelling Catheter Indwelling Catheter # Bowel Movements 1 - Exam GENERAL: Patient is unresponsive, dry mucous membranes. HEENT: Patient gauge is deviated towards the right No scleral icterus. No conjunctival pallor. Normocephalic, atraumatic. No pharyngeal erythema. No thyromegaly. CARDIOVASCULAR: S1 and S2 present. No murmurs, rubs, or gallops. PULMONARY: Negative. Bilateral expiratory wheezing improved compared to yesterday ABDOMEN: Soft, nontender, nondistended, normoactive bowel sounds. No palpable organomegaly. MUSCULOSKELETAL: No joint swelling or deformity. EXTREMITIES: No cyanosis, clubbing, or pedal edema. NEUROLOGICAL: Patient had no movement on the left side does respond to painful stimuli in the right side does right arm and right leg to painful stimuli. - Labs CBC & Chem 7: 11/24/20 08:26 11/24/20 08:26 Labs: Abnormal Lab Results - Last 24 Hours (Table) 11/23/20 11/23/20 11/23/20 Range/Units 11:22 11:22 13:39 WBC (3.8-10.6) k/uL Neutrophils # (1.3-7.7) k/uL APTT (22.0-30.0) sec Sodium (137-145) mmol/L Potassium (3.5-5.1) mmol/L Chloride (98-107) mmol/L Carbon Dioxide (22-30) mmol/L BUN (7-17) mg/dL Creatinine (0.52-1.04) mg/dL Glucose (74-99) mg/dL POC Glucose (mg/dL) 326 H (75-99) mg/dL Troponin I 0.143 H* (0.000-0.034) ng/mL Triglycerides (<150) mg/dL TSH 0.359 L (0.465-4.680) mIU/L 11/23/20 11/23/20 11/23/20 Range/Units 14:19 15:28 15:56 WBC (3.8-10.6) k/uL Neutrophils # (1.3-7.7) k/uL APTT (22.0-30.0) sec Sodium (137-145) mmol/L Potassium (3.5-5.1) mmol/L Chloride (98-107) mmol/L Carbon Dioxide (22-30) mmol/L BUN (7-17) mg/dL Creatinine (0.52-1.04) mg/dL Glucose (74-99) mg/dL POC Glucose (mg/dL) 330 H 302 H 292 H (75-99) mg/dL Troponin I (0.000-0.034) ng/mL Triglycerides (<150) mg/dL TSH (0.465-4.680) mIU/L 11/23/20 11/23/20 11/23/20 Range/Units 16:58 16:58 17:02 WBC (3.8-10.6) k/uL Neutrophils # (1.3-7.7) k/uL APTT 21.4 L (22.0-30.0) sec Sodium (137-145) mmol/L Potassium (3.5-5.1) mmol/L Chloride (98-107) mmol/L Carbon Dioxide (22-30) mmol/L BUN (7-17) mg/dL Creatinine (0.52-1.04) mg/dL Glucose (74-99) mg/dL POC Glucose (mg/dL) 340 H (75-99) mg/dL Troponin I 0.111 H* (0.000-0.034) ng/mL Triglycerides (<150) mg/dL TSH (0.465-4.680) mIU/L 11/23/20 11/23/20 11/23/20 Range/Units 18:07 19:00 20:05 WBC (3.8-10.6) k/uL Neutrophils # (1.3-7.7) k/uL APTT (22.0-30.0) sec Sodium (137-145) mmol/L Potassium (3.5-5.1) mmol/L Chloride (98-107) mmol/L Carbon Dioxide (22-30) mmol/L BUN (7-17) mg/dL Creatinine (0.52-1.04) mg/dL Glucose (74-99) mg/dL POC Glucose (mg/dL) 327 H 308 H 284 H (75-99) mg/dL Troponin I (0.000-0.034) ng/mL Triglycerides (<150) mg/dL TSH (0.465-4.680) mIU/L 11/23/20 11/23/20 11/23/20 Range/Units 21:23 22:13 23:02 WBC (3.8-10.6) k/uL Neutrophils # (1.3-7.7) k/uL APTT (22.0-30.0) sec Sodium (137-145) mmol/L Potassium (3.5-5.1) mmol/L Chloride (98-107) mmol/L Carbon Dioxide (22-30) mmol/L BUN (7-17) mg/dL Creatinine (0.52-1.04) mg/dL Glucose (74-99) mg/dL POC Glucose (mg/dL) 267 H 234 H 235 H (75-99) mg/dL Troponin I (0.000-0.034) ng/mL Triglycerides (<150) mg/dL TSH (0.465-4.680) mIU/L 11/24/20 11/24/20 11/24/20 Range/Units 00:21 00:50 02:02 WBC (3.8-10.6) k/uL Neutrophils # (1.3-7.7) k/uL APTT (22.0-30.0) sec Sodium (137-145) mmol/L Potassium (3.5-5.1) mmol/L Chloride (98-107) mmol/L Carbon Dioxide (22-30) mmol/L BUN (7-17) mg/dL Creatinine (0.52-1.04) mg/dL Glucose (74-99) mg/dL POC Glucose (mg/dL) 196 H 201 H 167 H (75-99) mg/dL Troponin I (0.000-0.034) ng/mL Triglycerides (<150) mg/dL TSH (0.465-4.680) mIU/L 11/24/20 11/24/20 11/24/20 Range/Units 03:41 04:35 05:48 WBC (3.8-10.6) k/uL Neutrophils # (1.3-7.7) k/uL APTT (22.0-30.0) sec Sodium (137-145) mmol/L Potassium (3.5-5.1) mmol/L Chloride (98-107) mmol/L Carbon Dioxide (22-30) mmol/L BUN (7-17) mg/dL Creatinine (0.52-1.04) mg/dL Glucose (74-99) mg/dL POC Glucose (mg/dL) 123 H 111 H 130 H (75-99) mg/dL Troponin I (0.000-0.034) ng/mL Triglycerides (<150) mg/dL TSH (0.465-4.680) mIU/L 11/24/20 11/24/20 11/24/20 Range/Units 06:25 07:48 08:26 WBC (3.8-10.6) k/uL Neutrophils # (1.3-7.7) k/uL APTT (22.0-30.0) sec Sodium (137-145) mmol/L Potassium (3.5-5.1) mmol/L Chloride (98-107) mmol/L Carbon Dioxide (22-30) mmol/L BUN (7-17) mg/dL Creatinine (0.52-1.04) mg/dL Glucose (74-99) mg/dL POC Glucose (mg/dL) 175 H 179 H (75-99) mg/dL Troponin I (0.000-0.034) ng/mL Triglycerides 220 H (<150) mg/dL TSH (0.465-4.680) mIU/L 11/24/20 11/24/20 11/24/20 Range/Units 08:26 08:26 08:44 WBC 18.1 H (3.8-10.6) k/uL Neutrophils # 16.1 H (1.3-7.7) k/uL APTT (22.0-30.0) sec Sodium 148 H (137-145) mmol/L Potassium 3.4 L (3.5-5.1) mmol/L Chloride 119 H (98-107) mmol/L Carbon Dioxide 19 L (22-30) mmol/L BUN 61 H (7-17) mg/dL Creatinine 1.49 H (0.52-1.04) mg/dL Glucose 196 H (74-99) mg/dL POC Glucose (mg/dL) 234 H (75-99) mg/dL Troponin I (0.000-0.034) ng/mL Triglycerides (<150) mg/dL TSH (0.465-4.680) mIU/L 11/24/20 11/24/20 11/24/20 Range/Units 09:46 10:45 11:45 WBC (3.8-10.6) k/uL Neutrophils # (1.3-7.7) k/uL APTT (22.0-30.0) sec Sodium (137-145) mmol/L Potassium (3.5-5.1) mmol/L Chloride (98-107) mmol/L Carbon Dioxide (22-30) mmol/L BUN (7-17) mg/dL Creatinine (0.52-1.04) mg/dL Glucose (74-99) mg/dL POC Glucose (mg/dL) 237 H 251 H 280 H (75-99) mg/dL Troponin I (0.000-0.034) ng/mL Triglycerides (<150) mg/dL TSH (0.465-4.680) mIU/L Assessment and Plan Assessment: - unresponsiveness, altered mental status and obtundation: Patient appears to have acute cerebrovascular accident involving the right cerebral hemisphere , right parietal cortex posterior watershed distribution area. Neurology eval uated the patient. IV heparin was discontinued which was initiated by cardiology for atrial fibrillation. Patient still has significant metabolic acidosis and significant metabolic abnormalities with elevated BN of 86 which is better compared to yesterday and patient mental status did improve a bit after the metabolic care abnormalities were corrected. Patient is presently on rectal aspirin, carotid Doppler was ordered. -Myoclonic activity on the right side secondary to possible severe ence phalopathy neurology was consulted and patient was started on prophylactic Keppra and EEG was ordered -New onset atrial fibrillation: Patient is not on anticoagulation because of concerns of hemorrhagic conversion of her stroke. Diabetic keto acidosis: Keto acidosis improved patient will remain on the IV insulin because of highly fluctuating blood sugars -Severe dehydration: Continue with IV fluids -Hypochloremia and hyponatremia: Secondary to normal saline which was switched to half-normal saline -Acute renal failure prerenal azotemia unsure whether patient has chronic kidney disease as baseline creatinine is not available patient is on IV fluids as mentioned above. -Metabolic acidosis: Patient has both anion gap and non-anion gap metabolic acidosis 7 hypertension: e. -Type 2 diabetes mellitus uncontrolled elevated blood sugars patient is insulin- dependent diabetic -Hyperlipidemia -DVT prophylaxis with subcutaneous heparin CODE STATUS: DO NOT RESUSCITATE
[2020-11-24 16:32] LABS: Glucose,Whole Blood 280 mg/dL (75-99)
--- NOTE | 2020-11-24 16:35 | ECHOF ---
Referral Reason:previous echo with no comment on EF due to HR MEASUREMENTS -------- HEIGHT: 170.2 cm WEIGHT: 77.1 kg BP: 120/71 TR Vmax: 1.74 m/s TR maxP.13 mmHg FINDINGS -------- Limited Study Overall left ventricular systolic function is normal with, an EF between 55 - 60 %. The global wall thickness of the right ventricle is mildly enlarged. Echo free space may represent effusion or a pericardial fat pad. There is no pericardial effusion. CONCLUSIONS -------- 1. Limited Study 2. Overall left ventricular systolic function is normal with, an EF between 55 - 60 %. 3. The global wall thickness of the right ventricle is mildly enlarged. 4. Echo free space may represent a pericardial fat pad. 5. There is no pericardial effusion. FORENSIC IDENTIFICATION SPECIALIST: Marilee Lott RDCS
[2020-11-24 17:12] LABS: Glucose,Whole Blood 299 mg/dL (75-99)
[2020-11-24 17:15] LABS: Glucose,Whole Blood 306 mg/dL (75-99)
--- NOTE | 2020-11-24 17:49 | P.PN ---
Subjective Progress Note Date: 11/24/20 He was seen at bedside and she continues to be unresponsive not following commands. Objective - Vital Signs Vital signs: Vital Signs Temp 98.1 F 11/24/20 09:20 Pulse 58 L 11/24/20 14:00 Resp 18 11/24/20 14:00 BP 120/71 11/24/20 11:30 Pulse Ox 97 11/24/20 11:30 Intake & Output 11/23/20 11/24/20 11/24/20 18:59 06:59 18:59 Intake Total 24.019 210.913 27.925 Output Total 4585 678 2454 Balance -1275.981 -539.087 -1572.075 Weight 79.5 kg 77.5 kg Intake: Intake, IV Titration 24.019 210.913 27.925 Amount Diltiazem 125 mg In 0.167 125 Sodium Chloride 0.9% 100 ml @ 10 MG/HR 10 mls/hr IV .[id number] [facility]IE Rx#: [id number] Insulin Regular 100 unit 23.852 85.913 27.925 In Sodium Chloride 0.9% 100 ml @ 0.1 UNITS/KG/HR 7.788 mls/hr IV .[id number] KATIE Rx#:[id number] Output: Urine 6220 136 6117 Other: Voiding Method Indwelling Catheter Indwelling Catheter Indwelling Catheter # Bowel Movements 1 - Exam GENERAL: The patient is lying in bed and does not seem in acute distress. NEUROLOGICAL: Limited because of patient's condition. Higher mental function: GCS 7 (E1, V1, M5). The patient is comatose. She is no verbalized or attempting to communicate. Cranial nerves: I had to manually open her eyes. The primary gaze seems midline. The pupils are round, equal, 2-3mm bilaterally and reactive to light. No facial weakness noted. Motor: Gait is unable to assess. The strength is Withdrawl to painful stimuli of right upper and lower extremity to painful stimuli but does not withdawl on the left upper and minimally withdrawl on the left lower extremity. No sponateous movement noted. Normal tone. Cerebellum: Could not assess. Sensation: Could not assess light touch and to painful stimuli as stated above. Reflexes (right/left): 1+ throughout. Plantars are mute bilaterally. - Labs CBC & Chem 7: 11/24/20 08:26 11/24/20 08:26 Labs: Abnormal Lab Results - Last 24 Hours (Table) 11/23/20 11/23/20 11/23/20 Range/Units 16:58 16:58 18:07 WBC (3.8-10.6) k/uL Neutrophils # (1.3-7.7) k/uL APTT 21.4 L (22.0-30.0) sec Sodium (137-145) mmol/L Potassium (3.5-5.1) mmol/L Chloride (98-107) mmol/L Carbon Dioxide (22-30) mmol/L BUN (7-17) mg/dL Creatinine (0.52-1.04) mg/dL Glucose (74-99) mg/dL POC Glucose (mg/dL) 327 H (75-99) mg/dL Troponin I 0.111 H* (0.000-0.034) ng/mL Triglycerides (<150) mg/dL 11/23/20 11/23/20 11/23/20 Range/Units 19:00 20:05 21:23 WBC (3.8-10.6) k/uL Neutrophils # (1.3-7.7) k/uL APTT (22.0-30.0) sec Sodium (137-145) mmol/L Potassium (3.5-5.1) mmol/L Chloride (98-107) mmol/L Carbon Dioxide (22-30) mmol/L BUN (7-17) mg/dL Creatinine (0.52-1.04) mg/dL Glucose (74-99) mg/dL POC Glucose (mg/dL) 308 H 284 H 267 H (75-99) mg/dL Troponin I (0.000-0.034) ng/mL Triglycerides (<150) mg/dL 11/23/20 11/23/20 11/24/20 Range/Units 22:13 23:02 00:21 WBC (3.8-10.6) k/uL Neutrophils # (1.3-7.7) k/uL APTT (22.0-30.0) sec Sodium (137-145) mmol/L Potassium (3.5-5.1) mmol/L Chloride (98-107) mmol/L Carbon Dioxide (22-30) mmol/L BUN (7-17) mg/dL Creatinine (0.52-1.04) mg/dL Glucose (74-99) mg/dL POC Glucose (mg/dL) 234 H 235 H 196 H (75-99) mg/dL Troponin I (0.000-0.034) ng/mL Triglycerides (<150) mg/dL 11/24/20 11/24/20 11/24/20 Range/Units 00:50 02:02 03:41 WBC (3.8-10.6) k/uL Neutrophils # (1.3-7.7) k/uL APTT (22.0-30.0) sec Sodium (137-145) mmol/L Potassium (3.5-5.1) mmol/L Chloride (98-107) mmol/L Carbon Dioxide (22-30) mmol/L BUN (7-17) mg/dL Creatinine (0.52-1.04) mg/dL Glucose (74-99) mg/dL POC Glucose (mg/dL) 201 H 167 H 123 H (75-99) mg/dL Troponin I (0.000-0.034) ng/mL Triglycerides (<150) mg/dL 11/24/20 11/24/20 11/24/20 Range/Units 04:35 05:48 06:25 WBC (3.8-10.6) k/uL Neutrophils # (1.3-7.7) k/uL APTT (22.0-30.0) sec Sodium (137-145) mmol/L Potassium (3.5-5.1) mmol/L Chloride (98-107) mmol/L Carbon Dioxide (22-30) mmol/L BUN (7-17) mg/dL Creatinine (0.52-1.04) mg/dL Glucose (74-99) mg/dL POC Glucose (mg/dL) 111 H 130 H 175 H (75-99) mg/dL Troponin I (0.000-0.034) ng/mL Triglycerides (<150) mg/dL 11/24/20 11/24/20 11/24/20 Range/Units 07:48 08:26 08:26 WBC (3.8-10.6) k/uL Neutrophils # (1.3-7.7) k/uL APTT (22.0-30.0) sec Sodium 148 H (137-145) mmol/L Potassium 3.4 L (3.5-5.1) mmol/L Chloride 119 H (98-107) mmol/L Carbon Dioxide 19 L (22-30) mmol/L BUN 61 H (7-17) mg/dL Creatinine 1.49 H (0.52-1.04) mg/dL Glucose 196 H (74-99) mg/dL POC Glucose (mg/dL) 179 H (75-99) mg/dL Troponin I (0.000-0.034) ng/mL Triglycerides 220 H (<150) mg/dL 11/24/20 11/24/20 11/24/20 Range/Units 08:26 08:44 09:46 WBC 18.1 H (3.8-10.6) k/uL Neutrophils # 16.1 H (1.3-7.7) k/uL APTT (22.0-30.0) sec Sodium (137-145) mmol/L Potassium (3.5-5.1) mmol/L Chloride (98-107) mmol/L Carbon Dioxide (22-30) mmol/L BUN (7-17) mg/dL Creatinine (0.52-1.04) mg/dL Glucose (74-99) mg/dL POC Glucose (mg/dL) 234 H 237 H (75-99) mg/dL Troponin I (0.000-0.034) ng/mL Triglycerides (<150) mg/dL 11/24/20 11/24/20 11/24/20 Range/Units 10:45 11:45 12:57 WBC (3.8-10.6) k/uL Neutrophils # (1.3-7.7) k/uL APTT (22.0-30.0) sec Sodium (137-145) mmol/L Potassium (3.5-5.1) mmol/L Chloride (98-107) mmol/L Carbon Dioxide (22-30) mmol/L BUN (7-17) mg/dL Creatinine (0.52-1.04) mg/dL Glucose (74-99) mg/dL POC Glucose (mg/dL) 251 H 280 H 293 H (75-99) mg/dL Troponin I (0.000-0.034) ng/mL Triglycerides (<150) mg/dL 11/24/20 11/24/20 11/24/20 Range/Units 13:49 15:17 16:11 WBC (3.8-10.6) k/uL Neutrophils # (1.3-7.7) k/uL APTT (22.0-30.0) sec Sodium (137-145) mmol/L Potassium (3.5-5.1) mmol/L Chloride (98-107) mmol/L Carbon Dioxide (22-30) mmol/L BUN (7-17) mg/dL Creatinine (0.52-1.04) mg/dL Glucose (74-99) mg/dL POC Glucose (mg/dL) 285 H 271 H 280 H (75-99) mg/dL Troponin I (0.000-0.034) ng/mL Triglycerides (<150) mg/dL 11/24/20 11/24/20 Range/Units 17:09 17:14 WBC (3.8-10.6) k/uL Neutrophils # (1.3-7.7) k/uL APTT (22.0-30.0) sec Sodium (137-145) mmol/L Potassium (3.5-5.1) mmol/L Chloride (98-107) mmol/L Carbon Dioxide (22-30) mmol/L BUN (7-17) mg/dL Creatinine (0.52-1.04) mg/dL Glucose (74-99) mg/dL POC Glucose (mg/dL) 299 H 306 H (75-99) mg/dL Troponin I (0.000-0.034) ng/mL Triglycerides (<150) mg/dL Assessment and Plan Assessment: Patient right gaze deviation with moving only the right side only is likely due acute to subacue ischemic stroke. Likely due to cardioembolic (Atrial fibrillation) Also component of altered mental status due to metabolic encephalopathy (Acute on chronic kidney insuffiency, DKA, elevated LFT's). Severe diffuse plaque bilaterally of the internal carotid artery but unknown to what degree per carotid ultrasound (cannot excluse stenosis 50-69% on left ICA) New onset Atrial fibrillation Acute on chronic kidney insufficiency Mild Elevated liver function test DKA--resolved Multiple electrolyte abnormality (mild hypokalemia mild hypernatremia) Reported history of dementia Peripheral neuropathy Plan: * Repeat CT of the head is reported as there appears to be some normal maturation of the right watershed infarct. No extension or hemorrhagic conversion is evident. Chronic periventricular white matter change. * Carotid duplex is reported as suboptimal study. As severe diffuse plaque bilaterally. Cannot exclude significant stenosis 50-69% in the proximal left internal carotid artery. Consider further investigation. * Vascular surgery team is consulted. * Lipid Panel: Triglyceride is 220, cholesterol is 176, LDL is 92, HDL is 40. Goal of LDL strokes is less than 70. * Continue aspirin 300 mg suppository and the patient is on Lipitor 40 mg daily at bedtime. * EEG on 11/23/2020 is reported as abnormal routine EEG. Tobacco slowing is suggestive of severe encephalopathy due to metabolic derangement or could be due to structural cerebral dysfunction. Other rare at the foam discharges over the right frontal increases the risk of seizure. There are no seizure during the study. There are occasional delta slowing over the right hem isphere consistent with the patient history of stroke. * Because of the tremor of bilateral upper extremity was noted by the patient's nurse on 11/23/20 as well as the ischemic stroke increases the risk of a seizure therefore I started the patient on Keppra 500 mg 1 tablet twice a day. * Heparin drip held and then will make recommendation of restarting the heparin drip/anticoagulation down the line (possibly will consider restarting it in 3 days from now to avoid hemoragic coversion of subacute ischemic stroke). If cardiology feels the benefit outweighs the risk of restarting heparin then recommend avoid any heparin drip boluses. And to keep the PTT between 45-60. * PT, OT and TECHNICAL TRAINING SPECIALIST are consulted. * Cardiology is on board. * We'll defer correction of patient's uncontrolled sugar as well as electrolyte imbalance to the primary team. * We'll defer the rest of the medical management to the primary team. Plan was discussed with the patient's son (Alejandro) who is at bedside. He stated he does not want any further investigation regarding carotid stenosis. I notifed him that her quality of life seems poor especially with the recent stroke, atrial fibrillation and the multiple comorbidities. Then later he notified the patient's nurse he want hospice to be consulted. There is no further work-up need. Please reconsult neurology if needed. Clark Kinsey M.D. Neuro-hospitalist Time with Patient: Less than 30
[2020-11-24 18:38] LABS: Glucose,Whole Blood 264 mg/dL (75-99)
[2020-11-24 19:13] LABS: Glucose,Whole Blood 267 mg/dL (75-99)
[2020-11-24 20:26] LABS: Glucose,Whole Blood 271 mg/dL (75-99)
[2020-11-24] MEDS: ATORVASTATIN 40 MG TAB PO SCH (20:47)
[2020-11-24] MEDS: FAMOTIDINE 20 MG/2 ML VIAL IV SCH (20:49)
[2020-11-24 21:13] LABS: Glucose,Whole Blood 273 mg/dL (75-99)
[2020-11-24 22:11] LABS: Glucose,Whole Blood 221 mg/dL (75-99)
[2020-11-24 22:57] LABS: Calcium 8.8 mg/dL (8.4-10.2); Potassium 3.4 mmol/L (3.5-5.1)
[2020-11-24 23:03] LABS: Glucose,Whole Blood 166 mg/dL (75-99)
[2020-11-24] MEDS ORDERED: INSULIN NPH 300 UNIT/3 ML VIAL SQ ONE (23:35)
[2020-11-25] MEDS: DILTIAZEM 125 MG in SODIUM CHLORIDE 0.9% 100 ML IV SCH ×3 (00:02→23:34)
[2020-11-25 02:03] LABS: Glucose,Whole Blood 169 mg/dL (75-99)
[2020-11-25 06:11] LABS: Glucose,Whole Blood 196 mg/dL (75-99)
[2020-11-25] MEDS: INSULIN ASPART (NovoLOG) 100 UNIT/ML VIAL SQ SCH ×7 (06:31→21:13)
[2020-11-25] MEDS: IPRATROPIUM-ALBUTEROL 3 ML NEB INHALATION SCH ×4 (08:06→21:09)
[2020-11-25] MEDS: levETIRAcetam IV 500 MG in SODIUM CHLORIDE 0.9% 100 ML IVPB SCH ×2 (08:37→20:02)
[2020-11-25] MEDS: HEPARIN SODIUM,PORCINE/PF 5,000 UNIT/0.5 ML SYRINGE SQ SCH ×3 (08:38→23:19)
[2020-11-25 12:32] LABS: Glucose,Whole Blood 170 mg/dL (75-99)
--- NOTE | 2020-11-25 13:22 | P.PN ---
Subjective Progress Note Date: 11/25/20 Principal diagnosis: CVA This is 75-year-old female patient with past medical history significant for diabetes mellitus type 2, hypertension, hyperlipidemia, chronic kidney disease, renal cancer status post surgery. Patient is not alert and oriented, opens eyes only to verbal stimuli. Information has been obtained from chart review and nursing staff. She presented to the emergency department after being found on the floor in her bathroom by her granddaughter. CT of the brain revealed new evolving acute/subacute infarct of the right parietal lobe. We were asked to see the patient in consultation for atrial fibrillation with rapid ventricular response and elevated troponin. NT proBNP was elevated at 14,200. She is currently continued on Cardizem drip for rate control. Anticoagulation is being held by neurology recommendation. She continues to be in atrial fibrillation with heart rate in the 90s. Objective - Vital Signs Vital signs: Vital Signs Temp 97.6 F 11/25/20 03:41 Pulse 68 11/25/20 11:32 Resp 18 11/25/20 03:41 BP 157/98 11/25/20 03:41 Pulse Ox 97 11/25/20 03:41 Intake & Output 11/24/20 11/25/20 11/25/20 18:59 06:59 18:59 Intake Total 33.859 759.987 Output Total 1600 975 Balance -1566.141 -215.013 Weight 76.5 kg Intake: IV 500 0.9 500 Intake, IV Titration 33.859 259.987 Amount Diltiazem 125 mg In 100.5 Sodium Chloride 0.9% 100 ml @ 10 MG/HR 10 mls/hr IV .[id number] KATIE Rx#: [id number] Insulin Regular 100 unit 33.859 59.487 In Sodium Chloride 0.9% 100 ml @ 0.1 UNITS/KG/HR 7.788 mls/hr IV .[id number] KATIE Rx#:[id number] levETIRAcetam IV 500 mg 100 In Sodium Chloride 0.9% 100 ml @ 400 mls/hr IVPB Q12HR KATIE Rx#:[id number] Output: Urine 1600 975 Other: Voiding Method Indwelling Catheter Indwelling Catheter - Exam PHYSICAL EXAMINATION: HEENT: Head is atraumatic, normocephalic. Pupils equal, round. Neck is supple. There is no elevated jugular venous pressure. HEART EXAMINATION: Heart sounds irregular irregular, S1 and S2 normal. No murmu r or gallop heard. CHEST EXAMINATION: Lungs are managed to auscultation. No chest wall tenderness i s noted on palpation or with deep breathing. ABDOMEN: Soft, obese, nontender. Bowel sounds are heard. No organomegaly noted. EXTREMITIES: 2+ peripheral pulses with no evidence of peripheral edema and no calf tenderness noted. NEUROLOGIC patient is awake, alert opens eyes to verbal stimuli, does not follow commands. . - Labs CBC & Chem 7: 11/24/20 08:26 11/24/20 22:27 Labs: Abnormal Lab Results - Last 24 Hours (Table) 11/24/20 11/24/20 11/24/20 Range/Units 12:57 13:49 15:17 Sodium (137-145) mmol/L Potassium (3.5-5.1) mmol/L Chloride (98-107) mmol/L BUN (7-17) mg/dL Creatinine (0.52-1.04) mg/dL Glucose (74-99) mg/dL POC Glucose (mg/dL) 293 H 285 H 271 H (75-99) mg/dL 11/24/20 11/24/20 11/24/20 Range/Units 16:11 17:09 17:14 Sodium (137-145) mmol/L Potassium (3.5-5.1) mmol/L Chloride (98-107) mmol/L BUN (7-17) mg/dL Creatinine (0.52-1.04) mg/dL Glucose (74-99) mg/dL POC Glucose (mg/dL) 280 H 299 H 306 H (75-99) mg/dL 11/24/20 11/24/20 11/24/20 Range/Units 18:17 19:11 20:25 Sodium (137-145) mmol/L Potassium (3.5-5.1) mmol/L Chloride (98-107) mmol/L BUN (7-17) mg/dL Creatinine (0.52-1.04) mg/dL Glucose (74-99) mg/dL POC Glucose (mg/dL) 264 H 267 H 271 H (75-99) mg/dL 11/24/20 11/24/20 11/24/20 Range/Units 21:02 21:59 22:27 Sodium 147 H (137-145) mmol/L Potassium 3.4 L (3.5-5.1) mmol/L Chloride 119 H (98-107) mmol/L BUN 46 H (7-17) mg/dL Creatinine 1.20 H (0.52-1.04) mg/dL Glucose 225 H (74-99) mg/dL POC Glucose (mg/dL) 273 H 221 H (75-99) mg/dL 11/24/20 11/25/20 11/25/20 Range/Units 23:02 02:02 06:10 Sodium (137-145) mmol/L Potassium (3.5-5.1) mmol/L Chloride (98-107) mmol/L BUN (7-17) mg/dL Creatinine (0.52-1.04) mg/dL Glucose (74-99) mg/dL POC Glucose (mg/dL) 166 H 169 H 196 H (75-99) mg/dL Assessment and Plan Assessment: Paroxysmal atrial fibrillation -[id number] score 4 New CVA - acute/subacute infarct right parietal lobe Type 2 diabetes Hypertension Hyperlipidemia History of Chronic kidney disease- unaware of patient's baseline creatinine Hypokalmemia- being replaced Hypernatremia Mildly Elevated Troponin x 1- not indicative of acute coronary syndrome, EKG with no ischemic changes Plan: From cardiology standpoint due to patient's inability to take oral medications we will continue Cardizem drip for rate control. We will continue to follow the patient and further recommendations accordingly. ASSISTANT DEAN [employer] note has been reviewed, I agree with a documented findings and plan of care. Patient was seen and examined.
[2020-11-25] MEDS: ASPIRIN 300 MG SUPP RECTAL SCH (15:23)
[2020-11-25] MEDS: amLODIPine 5 MG TAB PO SCH ×2 (15:23→19:48)
[2020-11-25] MEDS: allopurinoL 100 MG TAB PO SCH ×2 (15:23→19:48)
[2020-11-25] MEDS: METOPROLOL TARTRATE 25 MG TAB PO SCH ×2 (15:23→19:49)
[2020-11-25] MEDS: EZETIMIBE 10 MG TAB PO SCH (15:23)
[2020-11-25 15:52] LABS: Calcium 8.8 mg/dL (8.4-10.2); Potassium 3.6 mmol/L (3.5-5.1)
--- NOTE | 2020-11-25 16:03 | P.PN ---
Subjective Progress Note Date: 11/25/20 Principal diagnosis: Unresponsiveness; altered mental status/obtundation Acute CVA involving the right cerebral hemisphere, right parietal cortex, posterior watershed distribution area New onset atrial fibrillation Acute renal failure/dehydration/metabolic acidosis 75-year-old female patient transferred to hospital unresponsive, from an outside facility; CT of the head at the outside facility was negative for any stroke. Patient is found to be in DKA patient was in severe metabolic encephalopathy because of her diabetic ketoacidosis and acute renal failure because of which are it was believed patient is not responsive. Her DKA improved and patient blood sugars started going up again. After her DKA improved patient started moving her limbs but the patient started moving only right side of the body. Patient was also having some myoclonic activity on the right side which was believed to be secondary to encephalopathy or stroke. Because of which I consulted neurology and obtain a CT of the head without contrast which showed evolving large acute to subacute infarct in the right parietal lobe. And there is a significant chronic microvascular ischemic changes along with cerebral atrophy patient did not have any response or movement on the left side for pain. Although she was moving her right side. Patient has gauged deviated to the right side. After discussion with neurology considering her significant stroke patient's prognosis is poor. Patient also had an episode of atrial fibrillation today cardiology was consulted patient was started on heparin which was recommended by neurology to be stopped because of concerns of transformation of the stroke into a hemorrhagic stroke. Patient was started on aspirin rectally. Patient was started on Keppra prophylactically as well. Patient's son whose next of kin wanted her to be DO NOT RESUSCITATE patient will be DO NOT RESUSCITATE. Discussed at length with the granddaughter as well as son regarding her overall prognosis. Because of the massive stroke at prognosis appears to be poor. 11/25/2020 Patient is seen and evaluated in room at bedside; remains unresponsive; no family members are present at bedside; patient was discussed with nursing staff and family has decided for hospice care; patient remains on IV Cardizem for rate control due to patient's inability to take oral medications; continue with supportive care Objective - Vital Signs Vital signs: Vital Signs Temp 97.6 F 11/25/20 03:41 Pulse 56 L 11/25/20 08:16 Resp 18 11/25/20 03:41 BP 157/98 11/25/20 03:41 Pulse Ox 97 11/25/20 03:41 Intake & Output 11/24/20 11/25/20 11/25/20 18:59 06:59 18:59 Intake Total 33.859 759.987 Output Total 1600 975 Balance -1566.141 -215.013 Weight 76.5 kg Intake: IV 500 0.9 500 Intake, IV Titration 33.859 259.987 Amount Diltiazem 125 mg In 100.5 Sodium Chloride 0.9% 100 ml @ 10 MG/HR 10 mls/hr IV .[id number] KATIE Rx#: [id number] Insulin Regular 100 unit 33.859 59.487 In Sodium Chloride 0.9% 100 ml @ 0.1 UNITS/KG/HR 7.788 mls/hr IV .[id number] KATIE Rx#:[id number] levETIRAcetam IV 500 mg 100 In Sodium Chloride 0.9% 100 ml @ 400 mls/hr IVPB Q12HR KATIE Rx#:[id number] Output: Urine 1600 975 Other: Voiding Method Indwelling Catheter Indwelling Catheter - Exam GENERAL: Patient is unresponsive, dry mucous membranes. HEENT: Patient gauge is deviated towards the right No scleral icterus. No conjunctival pallor. Normocephalic, atraumatic. No pharyngeal erythema. No thyromegaly. CARDIOVASCULAR: S1 and S2 present. No murmurs, rubs, or gallops. PULMONARY: Negative. Bilateral expiratory wheezing improved compared to yesterday ABDOMEN: Soft, nontender, nondistended, normoactive bowel sounds. No palpable organomegaly. MUSCULOSKELETAL: No joint swelling or deformity. EXTREMITIES: No cyanosis, clubbing, or pedal edema. NEUROLOGICAL: Patient had no movement on the left side does respond to painful stimuli in the right side does right arm and right leg to painful stimuli. - Labs CBC & Chem 7: 11/24/20 08:26 11/25/20 15:19 Labs: Abnormal Lab Results - Last 24 Hours (Table) 11/24/20 11/24/20 11/24/20 Range/Units 10:45 11:45 12:57 Sodium (137-145) mmol/L Potassium (3.5-5.1) mmol/L Chloride (98-107) mmol/L BUN (7-17) mg/dL Creatinine (0.52-1.04) mg/dL Glucose (74-99) mg/dL POC Glucose (mg/dL) 251 H 280 H 293 H (75-99) mg/dL 11/24/20 11/24/20 11/24/20 Range/Units 13:49 15:17 16:11 Sodium (137-145) mmol/L Potassium (3.5-5.1) mmol/L Chloride (98-107) mmol/L BUN (7-17) mg/dL Creatinine (0.52-1.04) mg/dL Glucose (74-99) mg/dL POC Glucose (mg/dL) 285 H 271 H 280 H (75-99) mg/dL 11/24/20 11/24/20 11/24/20 Range/Units 17:09 17:14 18:17 Sodium (137-145) mmol/L Potassium (3.5-5.1) mmol/L Chloride (98-107) mmol/L BUN (7-17) mg/dL Creatinine (0.52-1.04) mg/dL Glucose (74-99) mg/dL POC Glucose (mg/dL) 299 H 306 H 264 H (75-99) mg/dL 11/24/20 11/24/20 11/24/20 Range/Units 19:11 20:25 21:02 Sodium (137-145) mmol/L Potassium (3.5-5.1) mmol/L Chloride (98-107) mmol/L BUN (7-17) mg/dL Creatinine (0.52-1.04) mg/dL Glucose (74-99) mg/dL POC Glucose (mg/dL) 267 H 271 H 273 H (75-99) mg/dL 11/24/20 11/24/20 11/24/20 Range/Units 21:59 22:27 23:02 Sodium 147 H (137-145) mmol/L Potassium 3.4 L (3.5-5.1) mmol/L Chloride 119 H (98-107) mmol/L BUN 46 H (7-17) mg/dL Creatinine 1.20 H (0.52-1.04) mg/dL Glucose 225 H (74-99) mg/dL POC Glucose (mg/dL) 221 H 166 H (75-99) mg/dL 11/25/20 11/25/20 Range/Units 02:02 06:10 Sodium (137-145) mmol/L Potassium (3.5-5.1) mmol/L Chloride (98-107) mmol/L BUN (7-17) mg/dL Creatinine (0.52-1.04) mg/dL Glucose (74-99) mg/dL POC Glucose (mg/dL) 169 H 196 H (75-99) mg/dL Assessment and Plan Assessment: - unresponsiveness, altered mental status and obtundation: Patient appears to have acute cerebrovascular accident involving the right cerebral hemisphere , right parietal cortex posterior watershed distribution area. Neurology evaluated the patient. IV heparin was discontinued which was initiated by cardiology for atrial fibrillation. Patient still has significant metabolic acidosis and significant metabolic abnormalities with elevated BN of 86 which is better compared to yesterday and patient mental status did improve a bit after the metabolic care abnormalities were corrected. Patient is presently on rectal aspirin, carotid Doppler was ordered. -Myoclonic activity on the right side secondary to possible severe encephalopathy neurology was consulted and patient was started on prophylactic Keppra and EEG was ordered -New onset atrial fibrillation: Patient is not on anticoagulation because of concerns of hemorrhagic conversion of her stroke. Diabetic keto acidosis: Keto acidosis improved patient will remain on the IV insulin because of highly fluctuating blood sugars -Severe dehydration: Continue with IV fluids -Hypochloremia and hyponatremia: Secondary to normal saline which was switched to half-normal saline -Acute renal failure prerenal azotemia unsure whether patient has chronic kidney disease as baseline creatinine is not available patient is on IV fluids as mentioned above. -Metabolic acidosis: Patient has both anion gap and non-anion gap metabolic acidosis 7 hypertension: e. -Type 2 diabetes mellitus uncontrolled elevated blood sugars patient is insulin- dependent diabetic -Hyperlipidemia -DVT prophylaxis with subcutaneous heparin CODE STATUS: DO NOT RESUSCITATE
--- NOTE | 2020-11-25 16:51 | PN ---
PROGRESS NOTE Patient is seen for followup for acute kidney injury. The patient has been doing well. Her renal function has improved. Serum creatinine is down to 1.2 as of yesterday, although her sodium remains elevated. It was at 147 yesterday. No labs available from today. PHYSICAL EXAMINATION: Blood pressure was 161/93, heart rate 60 per minute, she is afebrile. Examination of the heart S1, S2. Examination of lungs, decreased breath sounds at the bases. Abdomen is soft, nontender. Examination of lower extremities shows no evidence of edema. LABS: Labs from 11/24/2020: Sodium 147, potassium 3.4, BUN 46, creatinine 1.2. ASSESSMENT: 1. Acute kidney injury, prerenal, currently improving with IV hydration. 2. Diabetic ketoacidosis, improved. 3. Hypernatremia associated with free water deficit, slowly improving. Repeat labs today. 4. Hypokalemia secondary to decreased oral intake and intracellular shifting with insulin drip. 5. Acute cerebrovascular accident. 6. Atrial fibrillation with rapid ventricular response, maintained on Cardizem drip. PLAN: Check labs today. If sodium is worse, patient will need gentle IV hydration. Encourage increased free water intake. MMODL / IJN: [id number] /
[2020-11-25 16:58] LABS: Glucose,Whole Blood 151 mg/dL (75-99)
[2020-11-25] MEDS: ATORVASTATIN 40 MG TAB PO SCH (19:48)
[2020-11-25] MEDS ORDERED: FAMOTIDINE 20 MG TAB PO SCH (21:00)
[2020-11-25 21:10] LABS: Glucose,Whole Blood 165 mg/dL (75-99)
[2020-11-25] MEDS: INSULIN DETEMIR (LEVEMIR) 100 UNIT/ML SYR SQ SCH ×2 (21:11)
[2020-11-26 06:31] LABS: Glucose,Whole Blood 180 mg/dL (75-99)
[2020-11-26] MEDS: INSULIN ASPART (NovoLOG) 100 UNIT/ML VIAL SQ SCH ×7 (06:32→20:50)
[2020-11-26] MEDS: IPRATROPIUM-ALBUTEROL 3 ML NEB INHALATION SCH ×4 (09:03→19:56)
[2020-11-26] MEDS: levETIRAcetam IV 500 MG in SODIUM CHLORIDE 0.9% 100 ML IVPB SCH ×2 (09:08→20:50)
[2020-11-26] MEDS: HEPARIN SODIUM,PORCINE/PF 5,000 UNIT/0.5 ML SYRINGE SQ SCH (09:09)
[2020-11-26] MEDS: METOPROLOL TARTRATE 25 MG TAB PO SCH ×2 (11:14→20:39)
[2020-11-26] MEDS: amLODIPine 5 MG TAB PO SCH ×2 (11:14→20:38)
[2020-11-26] MEDS: EZETIMIBE 10 MG TAB PO SCH (11:15)
[2020-11-26] MEDS: allopurinoL 100 MG TAB PO SCH (11:15)
[2020-11-26] MEDS: ASPIRIN 300 MG SUPP RECTAL SCH (11:15)
[2020-11-26 11:41] LABS: Glucose,Whole Blood 174 mg/dL (75-99)
[2020-11-26 11:58] LABS: Glucose,Whole Blood 150 mg/dL (75-99)
[2020-11-26 12:21] LABS: Calcium 8.9 mg/dL (8.4-10.2); Potassium 3.9 mmol/L (3.5-5.1)
--- NOTE | 2020-11-26 12:41 | PN ---
PROGRESS NOTE Patient is seen for followup for acute kidney injury and hypernatremia. Her renal function has improved with creatinine down to 1.06 yesterday from 3.08 on initial admission. The patient does not communicate much. PHYSICAL EXAMINATION: On examination today, blood pressure is 169/82, heart rate 96 per minute. She does not answer to verbal stimuli. Patient appears comfortable. Examination of the heart S1, S2. Examination of the lungs, bilateral breath sounds are heard. Abdomen is soft, nontender. Examination of lower extremities shows no evidence of edema. LANDING [employer] exam, patient does not communicate. LABS: Not available from today. ASSESSMENT: 1. Acute kidney injury, prerenal, currently improving with IV hydration. 2. Diabetic ketoacidosis, now improved. 3. Hypernatremia associated with free water deficit, decreased oral intake, now improving. Repeat labs today. 4. Hypokalemia associated with decreased oral intake intracellular shifting associated with insulin drip. 5. Acute cerebrovascular accident. 6. Atrial fibrillation with rapid ventricular response, maintained on Cardizem drip. PLAN: Check labs today. The patient will need to be fed possibly via NG tube versus PEG tube if code status is not further changed. MMODL / IJN: [id number] /
--- NOTE | 2020-11-26 12:49 | P.PN ---
Subjective Progress Note Date: 11/26/20 Principal diagnosis: CVA This is 75-year-old female patient with past medical history significant for diabetes mellitus type 2, hypertension, hyperlipidemia, chronic kidney disease, renal cancer status post surgery. Patient is not alert and oriented, opens eyes only to verbal stimuli. Information has been obtained from chart review and nursing staff. She presented to the emergency department after being found on the floor in her bathroom by her granddaughter. CT of the brain revealed new evolving acute/subacute infarct of the right parietal lobe. We were asked to see the patient in consultation for atrial fibrillation with rapid ventricular response and elevated troponin. NT proBNP was elevated at 14,200. She is currently continued on Cardizem drip for rate control. Anticoagulation is being held by neurology recommendation. She continues to be in atrial fibrillation with heart rate in the 90s. 11/26/2020 The patient was seen and examined this morning. She remains on IV Cardizem for rate control. She continues to be in atrial fibrillation. Patient is less responsive today. She does not open eyes to stimuli. There has been a hospice consult ordered for the patient and anticipation for patient to be discharged to hospice house possibly tomorrow. Objective - Vital Signs Vital signs: Vital Signs Temp 98.4 F 11/26/20 08:00 Pulse 70 11/26/20 09:17 Resp 24 11/26/20 08:00 BP 169/82 11/26/20 08:00 Pulse Ox 96 11/26/20 08:00 Intake & Output 11/25/20 11/26/20 11/26/20 18:59 06:59 18:59 Intake Total 125 324.167 Output Total 500 575 Balance -375 -250.833 Weight 76.5 kg 78 kg Intake: IV 160 0.9 160 Intake, IV Titration 125 164.167 Amount Diltiazem 125 mg In 125 64.167 Sodium Chloride 0.9% 100 ml @ 10 MG/HR 10 mls/hr IV .[id number] KATIE Rx#: [id number] levETIRAcetam IV 500 mg 100 In Sodium Chloride 0.9% 100 ml @ 400 mls/hr IVPB Q12HR KATIE Rx#:[id number] Output: Urine 500 575 Other: Voiding Method Indwelling Catheter Indwelling Catheter Indwelling Catheter - Exam PHYSICAL EXAMINATION: HEENT: Head is atraumatic, normocephalic. Neck is supple. There is no elevated jugular venous pressure. HEART EXAMINATION: Heart sounds irregular irregular, S1 and S2 normal. No murmur or gallop heard. CHEST EXAMINATION: Lungs are diminished to auscultation. ABDOMEN: Soft, obese. Bowel sounds are heard. EXTREMITIES: 2+ peripheral pulses with no evidence of peripheral edema noted. NEUROLOGIC patient does not open eyes to stimuli and does not follow commands. . - Labs CBC & Chem 7: 11/24/20 08:26 11/26/20 11:42 Labs: Abnormal Lab Results - Last 24 Hours (Table) 11/25/20 11/25/20 11/25/20 Range/Units 15:19 16:56 20:57 Sodium 147 H (137-145) mmol/L Chloride 120 H (98-107) mmol/L Carbon Dioxide (22-30) mmol/L BUN 40 H (7-17) mg/dL Creatinine 1.06 H (0.52-1.04) mg/dL Glucose 182 H (74-99) mg/dL POC Glucose (mg/dL) 151 H 165 H (75-99) mg/dL 11/26/20 11/26/20 11/26/20 Range/Units 06:29 11:39 11:42 Sodium 150 H (137-145) mmol/L Chloride 122 H (98-107) mmol/L Carbon Dioxide 19 L (22-30) mmol/L BUN 42 H (7-17) mg/dL Creatinine 1.14 H (0.52-1.04) mg/dL Glucose 197 H (74-99) mg/dL POC Glucose (mg/dL) 180 H 174 H (75-99) mg/dL 11/26/20 Range/Units 11:57 Sodium (137-145) mmol/L Chloride (98-107) mmol/L Carbon Dioxide (22-30) mmol/L BUN (7-17) mg/dL Creatinine (0.52-1.04) mg/dL Glucose (74-99) mg/dL POC Glucose (mg/dL) 150 H (75-99) mg/dL Assessment and Plan Assessment: Paroxysmal atrial fibrillation -[id number] score 4 New CVA - acute/subacute infarct right parietal lobe Type 2 diabetes Hypertension Hyperlipidemia History of Chronic kidney disease- unaware of patient's baseline creatinine Hypokalmemia- being replaced Hypernatremia Mildly Elevated Troponin x 1- not indicative of acute coronary syndrome, EKG with no ischemic changes Plan: From cardiology standpoint due to patient's inability to take oral medications continue Cardizem drip for rate control. Prognosis is poor. The patient will be discharged to hospice in the next 24 hours or so. We will see the patient on an as-needed basis at this time. MANAGER GAMING note has been reviewed, I agree with a documented findings and plan of care. Patient was seen and examined.
--- NOTE | 2020-11-26 15:55 | P.PN ---
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 Patient is found to be in DKA patient was in severe metabolic encephalopathy because of her diabetic ketoacidosis and acute renal failure because of which are it was believed patient is not responsive. Her DKA improved and patient blood sugars started going up again. After her DKA improved patient started moving her limbs but the patient started moving only right side of the body. Patient was also having some myoclonic activity on the right side which was believed to be secondary to encephalopathy or stroke. Because of which I consulted neurology and obtain a CT of the head without contrast which showed evolving large acute to subacute infarct in the right parietal lobe. And there is a significant chronic microvascular ischemic changes along with cerebral atrophy patient did not have any response or movement on the left side for pain. Although she was moving her right side. Patient has gauged deviated to the right side. After discussion with neurology considering her significant stroke patient's prognosis is poor. Patient also had an episode of atrial fibrillation today cardiology was consulted patient was started on heparin which was recommended by neurology to be stopped because of concerns of transformation of the stroke into a hemorrhagic stroke. Patient was started on aspirin rectally. Patient was started on Keppra prophylactically as well. Patient's son whose next of kin wanted her to be DO NOT RESUSCITATE patient will be DO NOT RESUSCITATE. Discussed at length with the granddaughter as well as son regarding her overall prognosis. Because of the massive stroke at prognosis appears to be poor. 11/25/2020 Patient is seen and evaluated in room at bedside; remains unresponsive; no family members are present at bedside; patient was discussed with nursing staff and family has decided for hospice care; patient remains on IV Cardizem for rate control due to patient's inability to take oral medications; continue with supportive care 11/26/2020 Patient is seen and evaluated at Center at bedside; patient remains unresponsive; family has decided for hospice house [place] Vital signs are reviewed with a temperature of 98.3, pulse 80, respiration 32 and blood pressure 138/73 Patient remains on IV Cardizem infusion for rate control; currently nothing by mouth; oral medications have been discontinued; patient appears comfortable Case management on board await availability at hospice house; possible discharge in next 24-48 hours pending the availability Objective - Vital Signs Vital signs: Vital Signs Temp 98.3 F 11/26/20 04:00 Pulse 70 11/26/20 09:17 Resp 18 11/26/20 04:00 BP 180/74 11/26/20 04:00 Pulse Ox 95 11/26/20 04:00 Intake & Output 11/25/20 11/26/20 11/26/20 18:59 06:59 18:59 Intake Total 125 324.167 Output Total 500 575 Balance -375 -250.833 Weight 76.5 kg 78 kg Intake: IV 160 0.9 160 Intake, IV Titration 125 164.167 Amount Diltiazem 125 mg In 125 64.167 Sodium Chloride 0.9% 100 ml @ 10 MG/HR 10 mls/hr IV .[id number] KATIE Rx#: [id number] levETIRAcetam IV 500 mg 100 In Sodium Chloride 0.9% 100 ml @ 400 mls/hr IVPB Q12HR KATIE Rx#:[id number] Output: Urine 500 575 Other: Voiding Method Indwelling Catheter Indwelling Catheter - Exam GENERAL: Patient is unresponsive, dry mucous membranes. HEENT: Patient gauge is deviated towards the right No scleral icterus. No conjunctival pallor. Normocephalic, atraumatic. No pharyngeal erythema. No thyromegaly. CARDIOVASCULAR: S1 and S2 present. No murmurs, rubs, or gallops. PULMONARY: Negative. Bilateral expiratory wheezing improved compared to yesterday ABDOMEN: Soft, nontender, nondistended, normoactive bowel sounds. No palpable organomegaly. MUSCULOSKELETAL: No joint swelling or deformity. EXTREMITIES: No cyanosis, clubbing, or pedal edema. NEUROLOGICAL: Patient had no movement on the left side does respond to painful stimuli in the right side does right arm and right leg to painful stimuli. - Labs CBC & Chem 7: 11/24/20 08:26 11/26/20 11:42 Labs: Abnormal Lab Results - Last 24 Hours (Table) 11/25/20 11/25/20 11/25/20 Range/Units 12:30 15:19 16:56 Sodium 147 H (137-145) mmol/L Chloride 120 H (98-107) mmol/L BUN 40 H (7-17) mg/dL Creatinine 1.06 H (0.52-1.04) mg/dL Glucose 182 H (74-99) mg/dL POC Glucose (mg/dL) 170 H 151 H (75-99) mg/dL 11/25/20 11/26/20 Range/Units 20:57 06:29 Sodium (137-145) mmol/L Chloride (98-107) mmol/L BUN (7-17) mg/dL Creatinine (0.52-1.04) mg/dL Glucose (74-99) mg/dL POC Glucose (mg/dL) 165 H 180 H (75-99) mg/dL Assessment and Plan Assessment: - unresponsiveness, altered mental status and obtundation: Patient appears to have acute cerebrovascular accident involving the right cerebral hemisphere , right parietal cortex posterior watershed distribution area. Neurology evaluated the patient. IV heparin was discontinued which was initiated by cardiology for atrial fibrillation. Patient still has significant metabolic acidosis and significant metabolic abnormalities with elevated BN of 86 which is better compared to yesterday and patient mental status did improve a bit after the metabolic care abnormalities were corrected. Patient is presently on rectal aspirin, carotid Doppler was ordered. -Myoclonic activity on the right side secondary to possible severe encephalopathy neurology was consulted and patient was started on prophylactic Keppra and EEG was ordered -New onset atrial fibrillation: Patient is not on anticoagulation because of concerns of hemorrhagic conversion of her stroke. Diabetic keto acidosis: Keto acidosis improved patient will remain on the IV insulin because of highly fluctuating blood sugars -Severe dehydration: Continue with IV fluids -Hypochloremia and hyponatremia: Secondary to normal saline which was switched to half-normal saline -Acute renal failure prerenal azotemia unsure whether patient has chronic kidney disease as baseline creatinine is not available patient is on IV fluids as mentioned above. -Metabolic acidosis: Patient has both anion gap and non-anion gap metabolic acidosis 7 hypertension: e. -Type 2 diabetes mellitus uncontrolled elevated blood sugars patient is insulin- dependent diabetic -Hyperlipidemia -DVT prophylaxis with subcutaneous heparin CODE STATUS: DO NOT RESUSCITATE
[2020-11-26 16:17] LABS: Glucose,Whole Blood 152 mg/dL (75-99)
[2020-11-26] MEDS: DILTIAZEM 125 MG in SODIUM CHLORIDE 0.9% 100 ML IV SCH (17:22)
[2020-11-26 20:44] LABS: Glucose,Whole Blood 159 mg/dL (75-99)
[2020-11-26] MEDS: INSULIN DETEMIR (LEVEMIR) 100 UNIT/ML SYR SQ SCH (20:50)
[2020-11-27] MEDS: DILTIAZEM 125 MG in SODIUM CHLORIDE 0.9% 100 ML IV SCH ×2 (06:14→14:39)
[2020-11-27] MEDS: INSULIN ASPART (NovoLOG) 100 UNIT/ML VIAL SQ SCH ×5 (06:15→14:28)
[2020-11-27 06:23] LABS: Glucose,Whole Blood 186 mg/dL (75-99)
[2020-11-27] MEDS: IPRATROPIUM-ALBUTEROL 3 ML NEB INHALATION SCH ×3 (07:27→17:40)
[2020-11-27 07:50] VITALS: BMI 27.2
[2020-11-27] MEDS: amLODIPine 5 MG TAB PO SCH (08:24)
[2020-11-27] MEDS: METOPROLOL TARTRATE 25 MG TAB PO SCH (08:24)
[2020-11-27] MEDS: levETIRAcetam IV 500 MG in SODIUM CHLORIDE 0.9% 100 ML IVPB SCH (09:28)
[2020-11-27] MEDS ORDERED: DEXTROSE 5% IN WATER 1,000 ML IV SCH (09:45)
[2020-11-27 11:47] LABS: Glucose,Whole Blood 177 mg/dL (75-99)
[2020-11-27 15:16] VITALS: BP 93/52; PULSE 95; TEMP 100.8
[2020-11-27 16:46] LABS: Glucose,Whole Blood 196 mg/dL (75-99)
--- NOTE | 2020-11-27 16:48 | PN ---
PROGRESS NOTE Patient is seen for followup for acute kidney injury. The patient remains obtunded. She also has hypernatremia and her sodium increased to 150 yesterday. PHYSICAL EXAMINATION: Blood pressure this morning 129/45, heart rate 99 per minute. Patient is afebrile. She is obtunded and does not respond to any painful stimuli. EXAMINATION OF THE HEART: S1 and S2. EXAMINATION OF LUNGS: Bilateral breath sounds are heard. Examination of lower extremities shows no evidence of edema. LABS: Labs from 11/26/2020 show sodium 150, potassium 3.9, BUN 42, creatinine 1.14. ASSESSMENT: 1. Acute kidney injury, prerenal, currently improved. 2. Hypernatremia associated with free water deficit. Change IV fluids to D5W. 3. Atrial fibrillation with rapid ventricular response, maintained on Cardizem drip. 4. Diabetic ketoacidosis, now resolved. 5. Acute cerebrovascular accident. PLAN: Change IV fluids to D5W and repeat labs if CODE STATUS is not changed to comfort care. MMODL / IJN: [id number] /
[2020-11-27] MEDS ORDERED: MORPHINE SULFATE 2 MG/ML SYRINGE IV PRN (16:57)
[2020-11-27] MEDS ORDERED: LORazepam 2 MG/ML INJ IV PRN (16:57)
[2020-11-27] MEDS ORDERED: DRY MOUTH SPRAY 44.3 SPRAY/44.3 ML SPRAY MUCOUS MEM PRN (16:57)
[2020-11-27] MEDS ORDERED: SCOPOLAMINE 1.5MG/72HR PATCH TRANSDERM SCH (17:00)
--- NOTE | 2020-11-27 19:46 | PN ---
PROGRESS NOTE DATE OF SERVICE: 11/27/2020 This 75-year-old woman was admitted with change in mental status had a massive stroke involving the right cerebral hemisphere, right parietal cortex and posterior watershed distribution area. The patient also had new-onset atrial fibrillation. Patient continues to be unresponsive at this time. The patient is also having significant increased breathing. The patient also has acute renal failure. The patient is being closely monitored. The family is also considering hospice measures at this time. Past medical history reviewed. Review of systems could not be taken. CURRENT MEDICATIONS: Reviewed. They include albuterol, dextrose, diltiazem, Levemir, Keppra. PHYSICAL EXAMINATION: Patient is stuporous. Pulse is 90, blood pressure 107/67, respiration 26, temperature 99.9, pulse ox 99% on 2 L. HEENT: Conjunctivae normal. NECK: No jugular venous distention. CARDIOVASCULAR SYSTEM: S1, S2 muffled. RESPIRATORY SYSTEM: Breath sounds diminished at the bases. No rhonchi. No crackles. ABDOMEN: Soft. NERVOUS SYSTEM: Unresponsive. SKIN: No ulcers. LABS: WBC 18.1. Sodium 150 and 154. ASSESSMENT: 1. Acute cerebrovascular accident involving the right hemisphere with right parietal cortex, right posterior watershed distribution area. 2. Change in mental status, metabolic toxic encephalopathy secondary to stroke. 3. Acute renal failure. 4. Dehydration. 5. Hypernatremia. 6. Increased white count. 7. Troponin 0.111 of indeterminate significance. 8. Sick euthyroid syndrome. 9. Diabetes mellitus, type 2. 10.Hypertension. 11.Hyperlipidemia. 12.History of degenerative joint disease. 13.History of memory impairment. 14.History of peripheral neuropathy. 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 16.History of vitamin D deficiency. 17.History of urinary tract infections. 18.Cholecystectomy. 19.NO CODE, NO CPR, NO VENT. RECOMMENDATIONS AND DISCUSSION: This 75-year-old woman presented with multiple medical problems, as mentioned earlier. The patient has taken a turn for the worse. The patient is progressively comatose and stuporous and family is thinking about hospice measures. Will consult Hospice for informational visit and possible transition to inpatient hospice. The prognosis is extremely guarded because of the multiple complex medical issues. Please refer to the multiple progress notes and consultations for further details. MMODL / IJN: [id number] /
[2020-11-27 22:46] VITALS: RESP 8
--- NOTE | 2020-11-28 17:56 | DS ---
DISCHARGE SUMMARY FINAL DIAGNOSES: 1. Preliminary cause of is acute cerebrovascular accident involving the right hemisphere with right parietal cortex, right posterior watershed distribution area. 2. Change in mental status, acute metabolic encephalopathy, toxic encephalopathy secondary to stroke. 3. Acute renal failure, acute tubular necrosis. 4. Dehydration. 5. Hypernatremia. 6. Increased WBC. 7. Troponin 0.111 of indeterminate significance and sick euthyroid syndrome. 8. Diabetes mellitus type 2. 9. Hypertension. 10.Hyperlipidemia. 11.History of degenerative joint disease. 12.History of memory impairment. 13.History of peripheral neuropathy. 14.History of benign tumor from the left kidney. 15.History of vitamin D deficiency. 16.Urinary tract infection .. 17.Cholecystectomy. 18.NO CODE, NO CPR, NO VENT. 19.COMFORT MEASURES. HISTORY OF PRESENT ILLNESS: This 75-year-old woman with a past history of multiple medical problems admitted with significant stroke involving the right hemisphere. The patient had change in mental status and patient was continued stuporous. Patient was seen by multiple consultants including Cardiology and as well as Neurology. Care was coordinate. Patient was NO CODE. Because of lack of improvement the patient was transitioned to COMFORT MEASURES and the patient succumbed to her illness subsequently. The prognosis was extremely guarded throughout hospitalization. Please refer to the multiple progress notes and consultation notes for further information. MMODL / IJN: [id number] /
--- NOTE | 2020-12-08 13:15 | CDI ---
Documentation Clarification Form Mortality Review Date: 12/08/2020 01:12:04 PM From: Christiane Villalobos RN, CCDS Admit Date: 11/22/2020 01:50:00 AM Patient Name: Vania Parikh Visit Number: [id number] Discharge Date: 11/27/2020 11:49:00 PM ATTENTION: The Clinical Documentation Specialists (CDI) and [facility] Coding Staff appreciate your assistance in clarifying documentation. Please respond to the clarification below the line at the bottom and electronically sign. The CDI & [facility] Coding staff will review the response and follow-up if needed. Please note: Queries are made part of the Legal Health Record. If you have any questions, please contact the author of this message via ITS. Dr. Leonides Hanley "Cerebrovascular accident involving the right hemisphere with right parietal cortex, right posterior watershed distribution area" is documented beginning in the 11/23 Attending Progress Notes. For each diagnosis, documentation must be clear to determine if the condition was present at the time of the patients inpatient admission or developed during the hospital stay. Additional clarification regarding the "cerebrovascular accident involving the right hemisphere with right parietal cortex, right posterior watershed distribution area" is requested. History/Risk Factors: Partial left nephrectomy, dementia, HTN, HLD, CRF with diabetic nephropathy, IDDM 2, recurrent UTI's, vitamin D deficiency Clinical Indicators: 11/22 0151 EC Note: Patient accepted as a transfer patient when she presented after unknown downtime unknown amount days for she was last seen. Patient significantly altered on arrival to prior emergency department. Patient again transferred us for treatment and management DKA, General appearance: alert, anxious, in distress neuro exam alert, Neuro Exam: oriented, CCN intact 11/22 1132 H&P: "75-year-old the female came in after she was found unresponsive and found to be in DKA. Patient is a not very responsive barely arousable with painful stimuli. GENERAL: He is unresponsive, patient is obtunded not in any acute distress. NEUROLOGICAL: Gross neurological examination did not reveal any focal deficits. Unresponsiveness, altered mental status and obtundation: She appears to have severe metabolic encephalopathy secondary to diverticulosis doses highly elevated blood sugars, metabolic acidosis, DKA and acute renal failure. Diabetic ketoacidosis: Patient is presently on IV insulin IV fluids will be transitioned to half-normal selling because of hyperkalemia and hyponatremia. 11/23 Attending progress Note: Patient was admitted hospital unresponsive. CT of the head at the outside facility was negative for any stroke. Patient is found to be in DKA patient was in severe metabolic encephalopathy because of her diabetic ketoacidosis and acute renal failure because of which are it was believed patient is not responsive. Her DKA improved and patient blood sugars started going up again. After her DKA improved patient started moving her limbs but the patient started moving only right side of the body. Patient was also having some myoclonic activity on the right side which was believed to be secondary to encephalopathy or stroke. Because of which I consulted neurology and obtain a CT of the head without contrast which showed evolving large acute to subacute infarct in the right parietal lobe. Although she was moving her right side. Patient has gauged deviated to the right side. 11/23 121 Neurology consult: Today the patient nurse felt that she had tremor side to side of both upper extremities and resolved. There is no generalized tonic-clonic jerking or jerking of any extremities. The patient nurse the patient had CT of the head at outside facility and they requested results of the CT. Patient right gaze deviation with moving only the right side only is likely due acute to subacute ischemic stroke. Likely due to cardioembolic (Atrial fibrillation) Also component of altered mental status due to metabolic encephalopathy (Acute on chronic kidney insufficiency, DKA, elevated LFT's). Update: The ischemic stroke over the right parietal seems a large wedge-shaped ischemic stroke." Treatment: ASA 300 mg rectal Daily 11/24-11/26 Heparin SQ 5000 units Q8 hrs. 11/23 Levetiracetam 1000mg IVPB OT, followed by 500mg IVOPB Q 12 hrs. Definition of Present on Admission (POA): A diagnosis present at the time the order for admission to inpatient status was written. Please clarify if the CVA was POA [ ] Y = Yes, the condition was present at the time of the order for inpatient admission. [ ] N = No, the condition was not present at the time of the order for inpatient admission. [ ] W = Clinically undetermined if the condition was present at the time of the order for inpatient admission. (Template Last Revised: October 2020) Yes, the condition was present at the time of the order for inpatient admission [facility]
--- NOTE | 2020-12-08 13:23 | CDI ---
Documentation Clarification Form Mortality Review Date: 12/08/2020 01:16:54 PM From: Christiane Villalobos RN, CCDS Admit Date: 11/22/2020 01:50:00 AM Patient Name: Vania Parikh Visit Number: [id number] Discharge Date: 11/27/2020 11:49:00 PM ATTENTION: The Clinical Documentation Specialists (CDI) and [facility] Coding Staff appreciate your assistance in clarifying documentation. Please respond to the clarification below the line at the bottom and electronically sign. The CDI & [facility] Coding staff will review the response and follow-up if needed. Please note: Queries are made part of the Legal Health Record. If you have any questions, please contact the author of this message via ITS. Dr. Aliyah Askew Urinary Tract Infection is documented 11/28 D/C Summary, which may lack sufficient clinical evidence/support in the medical record. Additional clarification is requested. History/Risk Factors: Recurrent UTI, partial nephrectomy, IDDM 2, CKD with diabetic nephropathy, DKA this admission Clinical Indicators: 11/28 D/C Summary: Urinary tract infection NO U/A was performed at [facility] or [facility] upon review of laboratory results Treatment: NO antibiotics ordered 11/22 2L 0.9% NS IVF bolus Please clarify if Urinary Tract Infection is a valid diagnosis? [ ] Yes, Urinary Tract Infection is present as evidence by (additional clinical support): [ ] No, Urinary Tract Infection is ruled out [ ] Other (please specify diagnosis) [ ] Unable to determine (Template Last Revised: October 2020) Unable to determine MTDD
--- NOTE | 2020-12-08 13:38 | CDI ---
Documentation Clarification Form Mortality Review Date: 12/08/2020 01:35:05 PM From: Christiane Villalobos RN, CCDS Admit Date: 11/22/2020 01:50:00 AM Patient Name: Vania Parikh Visit Number: [id number] Discharge Date: 11/27/2020 11:49:00 PM ATTENTION: The Clinical Documentation Specialists (CDI) and [facility] Coding Staff appreciate your assistance in clarifying documentation. Please respond to the clarification below the line at the bottom and electronically sign. The CDI & [facility] Coding staff will review the response and follow-up if needed. Please note: Queries are made part of the Legal Health Record. If you have any questions, please contact the author of this message via ITS. Dr. Aliyah Askew Your patient has positive blood culture results on 11/23 from [facility]. Please clarify if there is an additional diagnosis and/or clinical significance related to this result. History/Risk Factors: IDDM2 with DKA, CKD w diabetic nephropathy, recurrent UTI's, partial nephrectomy, dementia Clinical indicators: 11/21 2215 Blood cultures from [facility] Resulted 11/23 and call Nurse: Blood Culture: Acinobacter johnsonii and Aerococcus viridans in aerobic bottle only aerobic bottle only, anaerobic bottle- no growth at 48 hrs. Treatment: No Abx ordered Is there an additional diagnosis and/or clinical significance related to the above blood culture result? [ ] Sepsis (please specify if POA) [ ] Other (please specify) [ ] Result is not clinically significant (no additional diagnosis) [ ] Other, please specify [ ] Unable to determine (Template Last Reviewed: September 2020) Unable to determine MTDD
--- NOTE | 2020-12-27 09:06 | CDI ---
Documentation Clarification Form Date: 12/27/2020 08:59:16 AM From: Florin Demetriorin Phone: Roberta Mcwilliams [phone] Admit Date: 11/22/2020 01:50:00 AM Patient Name: Vania Parikh Visit Number: [id number] Discharge Date: 11/27/2020 11:49:00 PM ATTENTION: The Clinical Documentation Specialists (CDI) and [facility] Coding Staff appreciate your assistance in clarifying documentation. Please respond to the clarification below the line at the bottom and electronically sign. The CDI & [facility] Coding staff will review the response and follow-up if needed. Please note: Queries are made part of the Legal Health Record. If you have any questions, please contact the author of this message via ITS. Dr. Aliyah Askew Your patient has an abnormal lab value : potassium 3.2-H+P. Please clarify if there is an additional diagnosis and/or clinical significance related to this value. History/Risk Factors: H+P states hyperkalemia but the lab value of 3.2 is under the normal range of 3.5-5.1. Clinical indicators: K+ 3.2 Treatment: IV fluids Is there an additional diagnosis and/or clinical significance related to the above lab result/information? [ ] diagnosis of hyerkalemia [ ] diagnosis of hypokalemia [ ] No additional diagnosis/Not clinically significant [ ] Other, please specify [ ] Unable to determine diagnosis of hypokalemia MTDD
== END 2020-11-27 23:49 | disposition expired | DRG 637 ==
LOC: EC 01:32 → 3SCARD 01:50
PROVIDERS: ADMIT Hospitalist; ATTEND Hospitalist
DX: E11.11 Type 2 diabetes mellitus with ketoacidosis with coma (principal); I63.233 Cerebral infarction due to unspecified occlusion or stenosis of bilateral carotid arteries; G93.41 Metabolic encephalopathy; N17.0 Acute kidney failure with tubular necrosis; I47.1 Supraventricular tachycardia; G81.04 Flaccid hemiplegia affecting left nondominant side; E87.0 Hyperosmolality and hypernatremia; Z51.5 Encounter for palliative care; Z66 Do not resuscitate; Z20.822 Contact with and (suspected) exposure to COVID-19; E11.22 Type 2 diabetes mellitus with diabetic chronic kidney disease; E11.42 Type 2 diabetes mellitus with diabetic polyneuropathy; N18.9 Chronic kidney disease, unspecified; I48.0 Paroxysmal atrial fibrillation; I12.9 Hypertensive chronic kidney disease with stage 1 through stage 4 chronic kidney disease, or unspecified chronic kidney disease; F03.90 Unspecified dementia, unspecified severity, without behavioral disturbance, psychotic disturbance, mood disturbance, and anxiety; Z79.4 Long term (current) use of insulin; R41.3 Other amnesia; Z90.5 Acquired absence of kidney; Z87.891 Personal history of nicotine dependence; Z79.899 Other long term (current) drug therapy; E78.5 Hyperlipidemia, unspecified; E86.0 Dehydration; G25.3 Myoclonus; R77.8 Other specified abnormalities of plasma proteins; I25.10 Atherosclerotic heart disease of native coronary artery without angina pectoris; K57.90 Diverticulosis of intestine, part unspecified, without perforation or abscess without bleeding; E87.6 Hypokalemia; H51.8 Other specified disorders of binocular movement; E86.1 Hypovolemia; E55.9 Vitamin D deficiency, unspecified; E87.8 Other disorders of electrolyte and fluid balance, not elsewhere classified; E07.81 Sick-euthyroid syndrome; Z87.440 Personal history of urinary (tract) infections; Z91.041 Radiographic dye allergy status; J44.9 Chronic obstructive pulmonary disease, unspecified; M19.042 Primary osteoarthritis, left hand; M19.041 Primary osteoarthritis, right hand; M17.0 Bilateral primary osteoarthritis of knee; Z82.49 Family history of ischemic heart disease and other diseases of the circulatory system; Z81.8 Family history of other mental and behavioral disorders; Z86.018 Personal history of other benign neoplasm
CPT/HCPCS: 36415; 70450; 71046; 80048; 80051; 80053; 80061; 82140; 82550; 82565; 82803; 82947; 83735; 83880; 84100; 84132; 84295; 84439; 84443; 84484; 84520; 85025; 85027; 85610; 85730; 87635; 93005; 93306; 93308; 93880; 94640; 95816; 96361; 96374; 99291